=== PATIENT | female | born 1945 | race Caucasian/White ===

== ENCOUNTER 2018-03-16 14:17 | Emergency (ER) | payer OTHER ==
--- NOTE | 2018-03-16 15:49 | ER ---
Nurse's Notes [facility] Name: Virginia Bullard Age: 72 yrs Sex: Female : 1945 Arrival Date: 03/16/2018 Time: 14:22 Bed 17 Private MD: Diagnosis: Fracture of second cervical vertebra Presentation: 03/16 14:26 Presenting complaint: EMS states: EMS reports patient was told to come to nearest ER as aj CT today showed "unstable neck fracture." Type II odontoid FX with undetermined age reported to CT completed today, read by Dr Anderson. Patient denies recent falls or trauma. Transition of care: patient was not received from another setting of care. Onset of symptoms is unknown. Initial Sepsis Screen: Does the patient meet any 2 criteria? No. Patient's initial sepsis screen is negative. Does the patient have a suspected source of infection? No. Patient's initial sepsis screen is negative. Care prior to arrival: None. 14:26 Method Of Arrival: EMS: [facility] 14:26 Acuity: MOHIT 3 aj Triage Assessment: 14:31 General: Appears in no apparent distress. comfortable, Behavior is calm, cooperative, aj appropriate for age. Pain: Denies pain. Neuro: Level of Consciousness is awake, obeys commands, confused, Oriented to person, place, situation. Respiratory: Airway is patent Respiratory effort is even, unlabored, Respiratory pattern is regular, symmetrical. Derm: Skin is intact, is healthy with good turgor, Skin is pink, warm \\T\\ dry. normal. Historical: - Allergies: 14:31 Iodine; aj 14:31 Sulfa (Sulfonamide Antibiotics); aj - Home Meds: 14:31 hydrocodone-acetaminophen 5-500 mg Oral tab 1 tab twice a day [Active]; levetiracetam aj 250 mg oral tab 2 tabs 2 times per day [Active]; tramadol 50 mg Oral tab 1 tab 3 times daily [Active]; oxybutynin chloride 10 mg Oral tr24 1 tab twice a day [Active]; pravastatin 20 mg Oral tab 1 tab once daily [Active]; amlodipine 2.5 mg tab 1 tab once daily [Active]; magnesium oxide 400 mg Oral tab [Active]; fluoxetine 40 mg Oral cap 1 cap once daily [Active]; gabapentin 600 mg Oral tab 1 tab 3 times per day [Active]; omeprazole 20 mg Oral cpDR 1 cap once daily [Active]; amitriptyline 25 mg Oral tab 1 tab once daily [Active]; aspirin 81 mg Oral chew 1 tab once daily [Active]; - PMHx: 14:31 Arthritis; bone disease; aj - PSHx: 14:31 Knee surgery; Rods and pins in back; aj - Immunization history:: Adult Immunizations up to date. - Social history:: Smoking status: Patient/guardian denies using tobacco. Screenin:35 Abuse screen: Denies threats or abuse. Denies injuries from another. Nutritional aj1 screening: No deficits noted. Tuberculosis screening: No symptoms or risk factors identified. 17:11 Fall Risk None identified. aj1 Assessment: 14:35 General: Appears in no apparent distress. comfortable, Behavior is calm, cooperative, aj1 appropriate for age. Pain: Denies pain. Neuro: Level of Consciousness is awake, alert, obeys commands, Oriented to person, place, time, situation, Enrollment Coordinator are equal bilaterally Moves all extremities. Full function Speech is normal, Facial symmetry appears normal, Pupils are PERRLA, Intact. Cardiovascular: Patient's skin is warm and dry. Respiratory: Airway is patent Respiratory effort is even, unlabored, Respiratory pattern is regular, symmetrical. GI: No signs and/or symptoms were reported involving the gastrointestinal system. : No signs and/or symptoms were reported regarding the genitourinary system. EENT: No signs and/or symptoms were reported regarding the EENT system. Derm: No signs and/or symptoms reported regarding the dermatologic system. Musculoskeletal: Range of motion: intact in all extremities, Denies pain in, neck. 15:42 Reassessment: Patient appears in no apparent distress at this time. No changes from aj1 previously documented assessment. Patient and/or family updated on plan of care and expected duration. Pain level reassessed. Patient is alert, oriented x 3, equal unlabored respirations, skin warm/dry/pink. 16:45 Reassessment: Patient appears in no apparent distress at this time. No changes from aj1 previously documented assessment. Patient and/or family updated on plan of care and expected duration. Pain level reassessed. Patient is alert, oriented x 3, equal unlabored respirations, skin warm/dry/pink. 16:50 Reassessment: report given to KAMINI Valentin at [facility]. aj1 Vital Signs: 14:26 BP 147 / 92; Pulse 92; Resp 18; Temp 98.8; Pulse Ox 98% on R/A; Weight 53.52 kg; Height aj 3 ft. 7 in. (109.22 cm); Pain 0/10; 15:42 BP 145 / 78; Pulse 79; Resp 18; Pulse Ox 99% ; aj1 16:45 BP 147 / 82; Pulse 88; Resp 18; Pulse Ox 99% ; aj1 14:26 Body Mass Index 44.87 (53.52 kg, 109.22 cm) aj ED Course: 14:22 Patient arrived in ED. 14:26 Marissa Koehler, RN is Primary Nurse. aj1 14:28 Triage completed. aj 14:31 Arm band placed on left wrist. Patient placed in an exam room, on a stretcher, on pulse aj oximetry. 14:35 Patient has correct armband on for positive identification. Bed in low position. Call aj1 light in reach. Side rails up X 1. 14:35 No provider procedures requiring assistance completed. aj1 14:37 Josh Cunningham MD is Attending Physician. 17:11 Patient did not have IV access during this emergency room visit. aj1 Administered Medications: No medications were administered Outcome: 15:48 ER care complete, transfer ordered by . 17:11 Transferred by ground EMS to [facility]. aj1 17:11 Condition: stable 17:11 Discharge instructions given to patient, family, Instructed on the need for transfer, Demonstrated understanding of instructions. 17:12 Patient left the ED. aj1 Signatures: Marissa Koehler, KAMINI RN aj Alba Bustos RN RN aj Smirch, Shelby, RN RN Josh Cunningham MD MD
--- NOTE | 2018-03-16 15:49 | EDPHYS ---
Physician Documentation [facility] Name: Virginia Bullard Age: 72 yrs Sex: Female : 1945 Arrival Date: 03/16/2018 Time: 14:22 Bed 17 Private MD: ED Physician Josh Cunningham HPI: 03/16 15:44 This 72 yrs old Female presents to ER via EMS with complaints of neck problem gs fracture noted on ct of c spine denies pain. 15:44 Onset: The symptoms/episode began/occurred today. Associated signs and symptoms: gs Pertinent negatives: headache, bladder incontinence, bowel incontinence, numbness, weakness. The pain does not radiate. Severity of symptoms: At their worst the symptoms were very mild, in the emergency department the symptoms are unchanged. Historical: - Allergies: 14:31 Iodine; aj 14:31 Sulfa (Sulfonamide Antibiotics); aj - Home Meds: 14:31 hydrocodone-acetaminophen 5-500 mg Oral tab 1 tab twice a day [Active]; levetiracetam aj 250 mg oral tab 2 tabs 2 times per day [Active]; tramadol 50 mg Oral tab 1 tab 3 times daily [Active]; oxybutynin chloride 10 mg Oral tr24 1 tab twice a day [Active]; pravastatin 20 mg Oral tab 1 tab once daily [Active]; amlodipine 2.5 mg tab 1 tab once daily [Active]; magnesium oxide 400 mg Oral tab [Active]; fluoxetine 40 mg Oral cap 1 cap once daily [Active]; gabapentin 600 mg Oral tab 1 tab 3 times per day [Active]; omeprazole 20 mg Oral cpDR 1 cap once daily [Active]; amitriptyline 25 mg Oral tab 1 tab once daily [Active]; aspirin 81 mg Oral chew 1 tab once daily [Active]; - PMHx: 14:31 Arthritis; bone disease; aj - PSHx: 14:31 Knee surgery; Rods and pins in back; aj - Immunization history:: Adult Immunizations up to date. - Social history:: Smoking status: Patient/guardian denies using tobacco. ROS: 15:44 All other systems are negative. gs Exam: 15:44 Head/Face: Normocephalic, atraumatic. Eyes: Pupils equal round and reactive to light, gs extra-ocular motions intact. Lids and lashes normal. Conjunctiva and sclera are non-icteric and not injected. Cornea within normal limits. Periorbital areas with no swelling, redness, or edema. ENT: Nares patent. No nasal discharge, no septal abnormalities noted. Tympanic membranes are normal and external auditory canals are clear. Oropharynx with no redness, swelling, or masses, exudates, or evidence of obstruction, uvula midline. Mucous membranes moist. Neck: Trachea midline, no thyromegaly or masses palpated, and no cervical lymphadenopathy. Supple, full range of motion without nuchal rigidity, or vertebral point tenderness. No Meningismus. Chest/axilla: Normal chest wall appearance and motion. Nontender with no deformity. No lesions are appreciated. Cardiovascular: Regular rate and rhythm with a normal S1 and S2. No gallops, murmurs, or rubs. Normal PMI, no JVD. No pulse deficits. Respiratory: Lungs have equal breath sounds bilaterally, clear to auscultation and percussion. No rales, rhonchi or wheezes noted. No increased work of breathing, no retractions or nasal flaring. Abdomen/GI: Soft, non-tender, with normal bowel sounds. No distension or tympany. No guarding or rebound. No evidence of tenderness throughout. Back: No spinal tenderness. No costovertebral tenderness. Full range of motion. Skin: Warm, dry with normal turgor. Normal color with no rashes, no lesions, and no evidence of cellulitis. MS/ Extremity: Pulses equal, no cyanosis. Neurovascular intact. Full, normal range of motion. Neuro: Awake and alert, GCS 15, oriented to person, place, time, and situation. Cranial nerves II-XII grossly intact. Motor strength 5/5 in all extremities. Sensory grossly intact. Cerebellar exam normal. Normal gait. 15:44 Constitutional: The patient appears short stature Vital Signs: 14:26 BP 147 / 92; Pulse 92; Resp 18; Temp 98.8; Pulse Ox 98% on R/A; Weight 53.52 kg; Height aj1 3 ft. 7 in. (109.22 cm); Pain 0/10; 15:42 BP 145 / 78; Pulse 79; Resp 18; Pulse Ox 99% ; aj1 16:45 BP 147 / 82; Pulse 88; Resp 18; Pulse Ox 99% ; aj1 14:26 Body Mass Index 44.87 (53.52 kg, 109.22 cm) aj1 MDM: 14:51 Patient medically screened. gs 15:44 Data reviewed: vital signs, nurses notes. ED course: pt need nsgy clearance for c2 fx, gs pt is asymptomatic, no trauma, no pain probably old non union. Administered Medications: No medications were administered Disposition: 03/16/18 15:48 Transfer ordered to [facility]. Diagnosis is Fracture of second cervical vertebra. - Reason for transfer: Higher level of care. - Accepting physician is [facility]. - Condition is Stable. - Problem is new. - Symptoms are unchanged. Signatures: Marissa Koehler RN RN aj1 Alba Bustos RN RN aj Josh Cunningham MD MD
[2018-03-16 17:24] VITALS: TEMP 98.8
[2018-03-16 17:25] VITALS: O2SAT 99
[2018-03-16 17:26] VITALS: BP 147/82
== END 2018-03-16 17:12 | disposition short-term general hospital (02) ==
LOC: ER 14:17
DX: S12.100A Unspecified displaced fracture of second cervical vertebra, initial encounter for closed fracture (principal); Z79.82 Long term (current) use of aspirin; Z88.2 Allergy status to sulfonamides; Z91.048 Other nonmedicinal substance allergy status
CPT/HCPCS: 99285

== ENCOUNTER 2018-04-27 19:45 | Emergency (ER) | payer OTHER ==
[2018-04-27] MEDS ORDERED: LEVETIRACETAM 500 MG/5 ML VIAL IV ONE (20:35)
[2018-04-27] MEDS ORDERED: NA CHLORIDE 0.9% 100 ML IV ONE (20:35)
[2018-04-27 20:40] LABS: Absolute Lymphocytes (CBC) 0.9 K/uL (0.7-4.9); Absolute Monocytes 0.9 K/uL (0.1-1.3); Absolute Neutrophil 6.1 K/uL (1.8-8.0); Basophils % 0.4 % (0-1.3); Eosinophils % 1.1 % (0-4.4); Hematocrit 38.7 % (36.0-45.0); Lymphocytes % 10.6 % (15.3-44.8); MCH 30.6 pg (27.0-35.0); MCV 92.6 fL (80-100); MPV 7.5 fL (7.6-11.3); Monocytes % 11.4 % (3.3-12.3); RBC Red Blood Cell Count 4.18 M/uL (3.86-4.86)
[2018-04-27 20:49] LABS: Potassium 4.9 mEq/L (3.6-5.0)
--- NOTE | 2018-04-27 21:00 | RAD REPORT ---
EXAM DESCRIPTION: CT - Head C Spine Mpr Wo Con - 04/27/2018 8:34 pm CLINICAL HISTORY: Seizure Head and neck injury status post fall. Head and neck pain COMPARISON: February 2018 and October 2017 TECHNIQUE: Computed axial tomography of the head and cervical spine was obtained. Sagittal and coronal reconstruction was performed. All CT scans are performed using dose optimization technique as appropriate and may include automated exposure control or mA/KV adjustment according to patient size. FINDINGS: Postsurgical changes of a suboccipital craniotomy are again demonstrated. A left frontal scalp hematoma is present without underlying fracture. An intracranial bleed is not seen. The ventricles are normal in caliber. An extra-axial fluid collect ion is not noted. Moderate low-density areas within periventricular, deep and subcortical white matte r likely represent ischemic changes secondary to small vessel disease. Mild opacification ethmoid sin us is seen. Mastoids are clear. A fracture involving the base of the odontoid process is again demonstrated. The fractured odontoid p rocess now is displaced 3 millimeters to the left with respect to the base of the odontoid. No change has occurred in the anterior displacement. No acute cervical fracture is seen. Postsurgical changes involving the cervical spine are again demon strated. Spondylosis is unchanged. Evaluation is somewhat limited secondary to artifact from the hardware. IMPRESSION: No acute intracranial abnormality is seen. The fractured odontoid process is displaced 3 millimeters to the left with respect to the base of the dens. No significant change has occurred in the anterior displacement No acute cervical fracture is seen.
--- NOTE | 2018-04-27 21:39 | RAD REPORT ---
EXAM DESCRIPTION: RAD - Knee Right 3 View - 04/27/2018 9:27 pm CLINICAL HISTORY: Right knee pain FINDINGS: The bones are osteoporotic. Deformity involves the distal right femur, proximal right tibi a and proximal right fibula all likely secondary to old fractures. No acute fracture or dislocation is seen.
[2018-04-27 21:45] LABS: Urine Blood 3+ (NEG); Urine Glucose NEGATIVE (NEG); Urine Protein 3+ (NEG); Urine Specific Gravity 1.025 (1.005-1.030)
[2018-04-27] MEDS ORDERED: CEFTRIAXONE/SWI 1gm 1 GM/10 ML SYR ONE (21:46)
[2018-04-27] MEDS ORDERED: NA CHLORIDE 0.9% 1,000 ML ONE (21:46)
--- NOTE | 2018-04-27 21:52 | RAD REPORT ---
EXAM DESCRIPTION: RAD - Hip Right 2 View - 04/27/2018 9:27 pm CLINICAL HISTORY: Right hip pain FINDINGS: The bones are osteoporotic. Marked osteoarthritis involves the right hip consisting joint space narrowing, subchondral sclerosis and osteophytes. The femoral head appears deformed perhaps secondary to avascular necrosis. There may be an old fracture of the femoral neck/trochanters. No dislocation is seen. No obvious acute fracture is noted although a subtle fracture would be difficult to detect given the above findings. If the patient continues to have symptoms to suggest an occult fracture then CT would be recommended
[2018-04-27 21:57] LABS: Urine Bacteria LOADED /HPF (<20); Urine Culture Reflex Order REFLEXED; Urine RBC LOADED /HPF (NONE SEEN)
--- NOTE | 2018-04-27 22:31 | EDPHYS ---
Physician Documentation [facility] Name: Virginia Bullard Age: 72 yrs Sex: Female : 1945 Arrival Date: 04/27/2018 Time: 19:59 Bed 4 Private MD: Jamil Dowling HPI: 04/27 21:59 This 72 yrs old Female presents to ER via EMS with complaints of Probable jr8 Seizure. 21:59 The patient presents after having a single isolated seizure, that lasted 1 minute(s). jr8 Character of seizure(s): Loss of consciousness: the patient experienced loss of consciousness, Motor activity: generalized. Seizure onset: just prior to arrival. Context: the seizure(s) was witnessed, by family, occurred at home, occurred while the patient was standing. Associated injury: The patient did not suffer any apparent associated injury, Right lower extremity: right knee. Current symptoms: Currently, the patient is not experiencing any symptoms, the patient feels back to baseline, no decreased level of consciousness, no confusion, no dysphasia, no headache, no paralysis, no visual changes. The patient has experienced similar episodes in the past, a few times. The patient has not recently seen a physician. History of seizures. Recently taken off of her medication. Had seizure today and fell hitting her head. EMS called at that time . Historical: - Allergies: 20:05 Iodine; lp1 20:05 Sulfa (Sulfonamide Antibiotics); lp1 - Home Meds: 20:05 hydrocodone-acetaminophen 5-325 mg oral tab twice a day [Active]; tramadol 50 mg Oral lp1 tab 1 tab 3 times daily for Neuropathic Pain [Active]; gabapentin 600 mg Oral tab 1 tab four times a day [Active]; levetiracetam 250 mg Oral tab 2 tabs 2 times per day [Active]; oxybutynin chloride 10 mg Oral tr24 1 tab twice a day [Active]; pravastatin 20 mg Oral tab 1 tab nightly [Active]; amlodipine 2.5 mg tab 1 tab once daily [Active]; fluoxetine 40 mg Oral cap 1 cap daily [Active]; omeprazole 20 mg Oral cpDR 1 cap once daily [Active]; amitriptyline 25 mg Oral tab 1 tab once daily [Active]; aspirin 81 mg Oral chew 1 tab once daily [Active]; magnesium oxide 400 mg Oral tab nightly [Active]; - PMHx: 20:05 Arthritis; bone disease; Seizures; Hypertension; Hyperlipidemia; lp1 - PSHx: 20:05 Cervical spinal surgery; lp1 - Immunization history:: Adult Immunizations up to date. - Social history:: Smoking status: Patient/guardian denies using tobacco. - Ebola Screening: : No symptoms or risks identified at this time. ROS: 21:59 Eyes: Negative for injury, pain, redness, and discharge, ENT: Negative for injury, jr8 pain, and discharge, Neck: Negative for injury, pain, and swelling, Cardiovascular: Negative for chest pain, palpitations, and edema, Respiratory: Negative for shortness of breath, cough, wheezing, and pleuritic chest pain, Abdomen/GI: Negative for abdominal pain, nausea, vomiting, diarrhea, and constipation, Back: Negative for injury and pain, MS/Extremity: Negative for injury and deformity. 21:59 Skin: Positive for hematoma, of the face. 21:59 Neuro: Positive for seizure activity. Exam: 21:59 Eyes: Pupils equal round and reactive to light, extra-ocular motions intact. Lids and jr8 lashes normal. Conjunctiva and sclera are non-icteric and not injected. Cornea within normal limits. Periorbital areas with no swelling, redness, or edema. ENT: Nares patent. No nasal discharge, no septal abnormalities noted. Tympanic membranes are normal and external auditory canals are clear. Oropharynx with no redness, swelling, or masses, exudates, or evidence of obstruction, uvula midline. Mucous membranes moist. Neck: Trachea midline, no thyromegaly or masses palpated, and no cervical lymphadenopathy. Supple, full range of motion without nuchal rigidity, or vertebral point tenderness. No Meningismus. Cardiovascular: Regular rate and rhythm with a normal S1 and S2. No gallops, murmurs, or rubs. Normal PMI, no JVD. No pulse deficits. Respiratory: Lungs have equal breath sounds bilaterally, clear to auscultation and percussion. No rales, rhonchi or wheezes noted. No increased work of breathing, no retractions or nasal flaring. Abdomen/GI: Soft, non-tender, with normal bowel sounds. No distension or tympany. No guarding or rebound. No evidence of tenderness throughout. Back: No spinal tenderness. No costovertebral tenderness. Full range of motion. Skin: Warm, dry with normal turgor. Normal color with no rashes, no lesions, and no evidence of cellulitis. Neuro: Awake and alert, GCS 15, oriented to person, place, time, and situation. Cranial nerves II-XII grossly intact. Motor strength 5/5 in all extremities. Sensory grossly intact. Cerebellar exam normal. Normal gait. 21:59 Head/face: Noted is hematoma, that is mild, of the forehead. 21:59 Musculoskeletal/extremity: Extremities: grossly normal except: noted in the right leg: ecchymosis, pain, swelling, tenderness, ROM: intact in all extremities, Circulation is intact in all extremities. Sensation intact. Vital Signs: 20:01 BP 106 / 86; Pulse 101; Resp 18; Temp 98.9(O); Pulse Ox 95% on R/A; Weight 50.8 kg; lp1 Pain 0/10; 20:30 Pulse Ox 88% on R/A; mg2 20:51 BP 120 / 76; Pulse 87; Resp 20; Pulse Ox 97% on 2 lpm NC; mg2 22:24 BP 119 / 70; Pulse 78; Resp 18; Pulse Ox 100% on 2 lpm NC; Pain 0/10; mg2 22:45 BP 104 / 90; Pulse 84; Resp 16; Pulse Ox 99% on 1 lpm NC; lp1 23:15 BP 134 / 74; Pulse 85; Resp 20; Pulse Ox 93% on R/A; lp1 20:30 When patient appears to be sleeping, arousable mg2 Samira Coma Score: 20:05 Eye Response: spontaneous(4). Verbal Response: oriented(5). Motor Response: obeys lp1 commands(6). Total: 15. MDM: 20:03 Patient medically screened. jr8 21:59 Data reviewed: vital signs, nurses notes, lab test result(s), radiologic studies, CT jr8 scan, plain films. Data interpreted: Pulse oximetry: on room air is 97 %. Interpretation: normal. Counseling: I had a detailed discussion with the patient and/or guardian regarding: the historical points, exam findings, and any diagnostic results supporting the discharge/admit diagnosis, lab results, radiology results, the need for outpatient follow up, a neurologist, to return to the emergency department if symptoms worsen or persist or if there are any questions or concerns that arise at home. ED course: Patient without seizure while in ED. UTI present which can exacerbate seizures. Will put on antibiotics and restart on meds. Needs to f/u with neurologist. If worse to come back. 22:29 ED course: Patient uses walker at home. Ambulated patient here with assistance to make jrNegro sure she can bear weight. Patient was able to ambulate. Stated that she has no pain with ambulation and feels as if she would normally feel with walking.. 22:31 ED course: Discussed with patient that she needs to f/u with neurosurgeon again for jr8 chronic odontoid fracture . 04/27 20:22 Order name: CBC with Diff; Complete Time: 20:54 04/27 20:22 Order name: Basic Metabolic Panel; Complete Time: 20:54 04/27 20:21 Order name: XRAY Knee RIGHT 3 view; Complete Time: 21:40 8 04/27 21:39 Order name: Urine Microscopic Only; Complete Time: 22:17 04/27 21:41 Order name: Urine Dipstick--Ancillary (enter results); Complete Time: 21:56 ms 04/27 21:58 Order name: Urine Culture EDMS 04/27 20:21 Order name: XRAY Hip RIGHT 2 view; Complete Time: 21:56 04/27 20:21 Order name: CT Head C Spine; Complete Time: 21:13 04/27 20:22 Order name: Urine Dipstick-Ancillary (obtain specimen); Complete Time: 21:36 04/27 20:24 Order name: IV; Complete Time: 20:24 Administered Medications: 20:42 Drug: Keppra 1000 mg Route: IV; Rate: calculated rate; Site: left antecubital; mg2 21:36 Follow up: Response: Other; IV Status: Completed infusion; no seizure noted mg2 21:48 Drug: NS 0.9% 1000 ml Route: IV; Rate: 1000 ml; Site: left antecubital; mg2 23:24 Follow up: IV Status: Completed infusion; IV Intake: 900ml lp1 21:48 Drug: Rocephin 1 grams Route: IV; Rate: calculated rate; Site: left antecubital; mg2 23:25 Follow up: IV Status: Completed infusion lp1 Point of Care Testing: Blood Glucose: 20:00 Blood Glucose: 102 mg/dL; lp1 Ranges: Critical Glucose Levels:Adult <50 mg/dl or >400 mg/dl <40 mg/dl or >180 mg/dl Disposition: 04/28 06:37 Co-signature as Attending Physician, Jamil Schultz MD I agree with the assessment and nickolas plan of care. Disposition: 04/27/18 22:30 Discharged to Home. Impression: Epilepsy and recurrent seizures, Hematoma head, Contusion of right knee, Urinary tract infection, site not specified. - Condition is Stable. - Discharge Instructions: Seizure, Adult, Knee Pain. - Prescriptions for Keppra 500 mg Oral Tablet - take 1 tablet by ORAL route every 12 hours; 20 tablet. Macrobid 100 mg Oral Capsule - take 1 capsule by ORAL route every 12 hours for 7 days; 14 capsule. - Medication Reconciliation Form, Thank You Letter, Antibiotic Education, Prescription Opioid Use form. - Follow up: Private Physician; When: 2 - 3 days; Reason: Recheck today's complaints, Continuance of care, Re-evaluation by your physician. - Problem is new. - Symptoms have improved. Signatures: Dispatcher [employer] EDJamil Samaniego MD MD cha Pena, Laura, RN RN lp1 Bradly Aguayo PA PA jr8 Dov Allen RN RN mg2 Corrections: (The following items were deleted from the chart) 04/27 22:31 22:30 04/27/2018 22:30 Discharged to Home. Impression: Epilepsy and recurrent seizures; jr8 Hematoma head; Contusion of right knee. Condition is Stable. Forms are Medication Reconciliation Form, Thank You Letter, Antibiotic Education, Prescription Opioid Use. Follow up: Private Physician; When: 2 - 3 days; Reason: Recheck today's complaints, Continuance of care, Re-evaluation by your physician. Problem is new. Symptoms have improved. jr8 23:25 22:31 04/27/2018 22:30 Discharged to Home. Impression: Epilepsy and recurrent seizures; lp1 Hematoma head; Contusion of right knee; Urinary tract infection, site not specified. Condition is Stable. Discharge Instructions: Seizure, Adult, Knee Pain. Prescriptions for Keppra 500 mg Oral Tablet - take 1 tablet by ORAL route every 12 hours; 20 tablet, Macrobid 100 mg Oral Capsule - take 1 capsule by ORAL route every 12 hours for 7 days; 14 capsule. and Forms are Medication Reconciliation Form, Thank You Letter, Antibiotic Education, Prescription Opioid Use. Follow up: Private Physician; When: 2 - 3 days; Reason: Recheck today's complaints, Continuance of care, Re-evaluation by your physician. Problem is new. Symptoms have improved. jr8
--- NOTE | 2018-04-27 22:31 | ER ---
Nurse's Notes [facility] Name: Virginia Bullard Age: 72 yrs Sex: Female : 1945 Arrival Date: 04/27/2018 Time: 19:59 Bed 4 Private MD: Diagnosis: Epilepsy and recurrent seizures;Hematoma head;Contusion of right knee;Urinary tract infection, site not specified Presentation: 04/27 19:59 Presenting complaint: EMS states: Patient taken off of her seizure medication, Nolan, shabana1 recently by ; had unwitnessed fall after seizure about an hour ago, family heard loud noise and found patient on floor; Complaint of pain to R knee, EMS unable to apply C-collar due to anatomy of patient. Transition of care: patient was not received from another setting of care. Onset of symptoms was April 27, 2018 at 19:00. Risk Assessment: Do you want to hurt yourself or someone else? Patient reports no desire to harm self or others. Initial Sepsis Screen: Does the patient meet any 2 criteria? No. Patient's initial sepsis screen is negative. Does the patient have a suspected source of infection? No. Patient's initial sepsis screen is negative. Care prior to arrival: IV initiated. 20 GA, in the left antecubital area, Glucose check: 113. 19:59 Method Of Arrival: EMS: [facility] lp1 19:59 Acuity: MOHIT 2 lp1 Historical: - Allergies: 20:05 Iodine; lp1 20:05 Sulfa (Sulfonamide Antibiotics); lp1 - Home Meds: 20:05 hydrocodone-acetaminophen 5-325 mg oral tab twice a day [Active]; tramadol 50 mg Oral lp1 tab 1 tab 3 times daily for Neuropathic Pain [Active]; gabapentin 600 mg Oral tab 1 tab four times a day [Active]; levetiracetam 250 mg Oral tab 2 tabs 2 times per day [Active]; oxybutynin chloride 10 mg Oral tr24 1 tab twice a day [Active]; pravastatin 20 mg Oral tab 1 tab nightly [Active]; amlodipine 2.5 mg tab 1 tab once daily [Active]; fluoxetine 40 mg Oral cap 1 cap daily [Active]; omeprazole 20 mg Oral cpDR 1 cap once daily [Active]; amitriptyline 25 mg Oral tab 1 tab once daily [Active]; aspirin 81 mg Oral chew 1 tab once daily [Active]; magnesium oxide 400 mg Oral tab nightly [Active]; - PMHx: 20:05 Arthritis; bone disease; Seizures; Hypertension; Hyperlipidemia; lp1 - PSHx: 20:05 Cervical spinal surgery; lp1 - Immunization history:: Adult Immunizations up to date. - Social history:: Smoking status: Patient/guardian denies using tobacco. - Ebola Screening: : No symptoms or risks identified at this time. Screenin:04 Abuse screen: Denies threats or abuse. Denies injuries from another. Nutritional mg2 screening: No deficits noted. Tuberculosis screening: No symptoms or risk factors identified. Fall Risk Secondary diagnosis (15 points) seizures, IV access (20 points). Assessment: 20:05 General: Appears in no apparent distress. comfortable, Behavior is calm, cooperative. mg2 Neuro: Level of Consciousness is awake, alert, obeys commands, Oriented to person, place, time. 20:06 Neuro:. Cardiovascular: Capillary refill < 3 seconds Patient's skin is warm and dry. mg2 Respiratory: Airway is patent Respiratory effort is even, unlabored, Respiratory pattern is regular, symmetrical. GI: No signs and/or symptoms were reported involving the gastrointestinal system. : No signs and/or symptoms were reported regarding the genitourinary system. EENT: No signs and/or symptoms were reported regarding the EENT system. Derm: Skin is intact, Skin is pink, warm \T\ dry. normal. 20:58 Pain: Complains of pain in left eyebrow area, right knee Pain does not radiate. Pain mg2 currently is 5 out of 10 on a pain scale. Quality of pain is described as aching, Pain began suddenly, 2 hours ago. Aggravated by touch. 20:59 Musculoskeletal: Circulation, motion, and sensation intact. Swelling present in left mg2 eyebrow mily. Injury Description: Bruise sustained to left eyebrow area. 22:34 Reassessment: sister in law bernardo was called and said she is coming to pick her up. mg2 patient is for discharge. 23:22 Reassessment: Patient resting, eyes closed, respirations unlabored; family at bedside lp1 to take patient home; brought patient's personal wheelchair. Vital Signs: 20:01 BP 106 / 86; Pulse 101; Resp 18; Temp 98.9(O); Pulse Ox 95% on R/A; Weight 50.8 kg; lp1 Pain 0/10; 20:30 Pulse Ox 88% on R/A; mg2 20:51 BP 120 / 76; Pulse 87; Resp 20; Pulse Ox 97% on 2 lpm NC; mg2 22:24 BP 119 / 70; Pulse 78; Resp 18; Pulse Ox 100% on 2 lpm NC; Pain 0/10; mg2 22:45 BP 104 / 90; Pulse 84; Resp 16; Pulse Ox 99% on 1 lpm NC; lp1 23:15 BP 134 / 74; Pulse 85; Resp 20; Pulse Ox 93% on R/A; lp1 20:30 When patient appears to be sleeping, arousable mg2 Samira Coma Score: 20:05 Eye Response: spontaneous(4). Verbal Response: oriented(5). Motor Response: obeys lp1 commands(6). Total: 15. ED Course: 19:59 Patient arrived in ED. lp1 20:01 Triage completed. lp1 20:01 Arm band placed on left wrist. lp1 20:03 Bradly Aguayo PA is PHCP. jr8 20:03 Jamil Schultz MD is Attending Physician. jr8 20:03 Dov Allen RN is Primary Nurse. mg2 20:04 Maintain EMS IV. Dressing intact. Good blood return noted. Site clean \T\ dry. mg2 20:05 Patient has correct armband on for positive identification. Bed in low position. Call lp1 light in reach. Side rails up X2. monitor and storage bin tender on. Pulse ox on. NIBP on. 20:[address] via stretcher. kw1 20:30 Seizure precautions initiated. lp1 20:35 CT Head C Spine In Process Unspecified. EDMS 21:27 XRAY Knee RIGHT 3 view In Process Unspecified. EDMS 21:27 XRAY Hip RIGHT 2 view In Process Unspecified. EDMS 21:38 Urine collected: straight cath specimen, tea colored. mg2 23:24 No provider procedures requiring assistance completed. IV discontinued, to left AC. lp1 Administered Medications: 20:42 Drug: Keppra 1000 mg Route: IV; Rate: calculated rate; Site: left antecubital; mg2 21:36 Follow up: Response: Other; IV Status: Completed infusion; no seizure noted mg2 21:48 Drug: NS 0.9% 1000 ml Route: IV; Rate: 1000 ml; Site: left antecubital; mg2 23:24 Follow up: IV Status: Completed infusion; IV Intake: 900ml lp1 21:48 Drug: Rocephin 1 grams Route: IV; Rate: calculated rate; Site: left antecubital; mg2 23:25 Follow up: IV Status: Completed infusion lp1 Point of Care Testing: Blood Glucose: 20:00 Blood Glucose: 102 mg/dL; lp1 Ranges: Intake: 23:24 IV: 900ml; Total: 900ml. lp1 Outcome: 22:30 Discharge ordered by . jrNegro 23:24 Discharged to home via wheelchair, with family. lp1 23:24 Condition: good 23:24 Discharge instructions given to patient, family, Instructed on discharge instructions, follow up and referral plans. medication usage, Demonstrated understanding of instructions, follow-up care, medications, Prescriptions given X 2. 23:25 Patient left the ED. lp1 Addendum: 04/30/2018 07:41 Addendum: Culture Results: Positive urine culture. No further action required. Bacteria i w sensitive to prescribed antibiotic. Signatures: Dispatcher [employer] EDMilvia Harp RN RN iw Pauline Farmer RN RN lp1 Bradly Aguayo PA PA jr8 Aylin Meraz 1 Dov Allen RN RN mg2 Corrections: (The following items were deleted from the chart) 04/27 21:00 20:06 Musculoskeletal: No signs and/or symptoms reported regarding the musculoskeletal mg2 system. mg2
[2018-04-27 23:50] VITALS: TEMP 98.9
[2018-04-27 23:56] VITALS: BP 134/74; O2SAT 93
--- NOTE | 2018-04-29 07:59 | EKG ---
Test Date: 2018-04-27 Test Time: 20:14:02 Table And Desk Finisher: ENRIQUE MEASUREMENT RESULTS: Intervals: Rate: 90 OR: 174 QRSD: 90 QT: 378 QTc: 462 [place]: P: 29 OR: 174 QRS: 40 T: 50 INTERPRETIVE STATEMENTS: Normal sinus rhythm Normal ECG Compared to ECG 10/29/2017 12:14:28 No significant changes Electronically Signed On 04-29-18 07:55:23 CDT by Joshua Wong
== END 2018-04-27 23:25 | disposition home or self-care (01) ==
LOC: ER 19:45
DX: S00.93XA Contusion of unspecified part of head, initial encounter (principal); S80.01XA Contusion of right knee, initial encounter; N39.0 Urinary tract infection, site not specified; I10 Essential (primary) hypertension; E78.5 Hyperlipidemia, unspecified; W18.30XA Fall on same level, unspecified, initial encounter; Y93.89 Activity, other specified; Y92.9 Unspecified place or not applicable; Z79.82 Long term (current) use of aspirin; Z88.2 Allergy status to sulfonamides; Z88.8 Allergy status to other drugs, medicaments and biological substances
CPT/HCPCS: 36415; 70450; 72125; 73502; 73562; 80048; 82962; 85025; 87077; 87086; 87088; 87186; 93005; 96365; 96366; 96367; 99285; J0696; J1953; J7030; 81003; 81015; 96361

== ENCOUNTER 2019-09-19 07:28 | Emergency (ER) | payer OTHER ==
[2019-09-19 08:22] LABS: Absolute Lymphocytes (CBC) 1.2 K/uL (0.7-4.9); Basophils % 0.5 % (0-1.3); Hematocrit 23.7 % (36.0-45.0); Lymphocytes % 9.6 % (15.3-44.8); MPV 6.3 fL (7.6-11.3); RBC Red Blood Cell Count 2.68 M/uL (3.86-4.86)
--- NOTE | 2019-09-19 08:30 | RAD REPORT ---
EXAM DESCRIPTION: CT - Abdomen Pelvis Wo Contrast - 09/19/2019 8:21 am CLINICAL HISTORY: Abdominal pain. ABD PAIN COMPARISON: No comparisons TECHNIQUE: CT imaging of the abdomen and pelvis was performed without contrast. Solid organ, bowel a nd vascular assessment is limited due to lack of IV and oral contrast. All CT scans are performed using dose optimization technique as appropriate and may include automated exposure control or mA/KV adjustment according to patient size. FINDINGS: The lower lung naik are clear. The liver, spleen, pancreas, adrenal glands and kidneys are within normal limits for a limited non-co ntrast examination. No bowel obstruction, free air, free fluid or abscess. Moderate retained stool in the colon. The appe ndix is not identified as a discrete structure, however, no secondary findings of appendicitis are id entified. Trauma degenerative change in the lumbar spine in both hips. IMPRESSION: Moderate fecal retention. A limited non-contrast examination was performed as detailed.
[2019-09-19] MEDS ORDERED: FLEET ENEMA ADULT PR ONE (08:41)
[2019-09-19 09:24] LABS: Potassium 3.7 mmol/L (3.5-5.1)
--- NOTE | 2019-09-19 09:49 | ER ---
Nurse's Notes [facility] Name: Virginia Bullard Age: 73 yrs Sex: Female : 1945 Arrival Date: 09/19/2019 Time: 07:32 Bed 18 Private MD: Diagnosis: Constipation;Gastrointestinal hemorrhage, unspecified Presentation: 09/19 07:45 Presenting complaint: Patient states: constipation x 1 week. Patient believes it's ss because of all the Morphine she takes for chronic pain. Transition of care: patient was not received from another setting of care. Onset of symptoms was September 12, 2019. Risk Assessment: Do you want to hurt yourself or someone else? Patient reports no desire to harm self or others. Initial Sepsis Screen: Does the patient meet any 2 criteria? No. Patient's initial sepsis screen is negative. Does the patient have a suspected source of infection? No. Patient's initial sepsis screen is negative. Care prior to arrival: None. 07:45 Method Of Arrival: Wheelchair ss 07:45 Acuity: MOHIT 3 ss Historical: - Allergies: 07:43 Iodine; sv 07:43 Sulfa (Sulfonamide Antibiotics); sv - Home Meds: 09:21 amlodipine 10 mg oral tab 1 tab once daily [Active]; fluoxetine 40 mg Oral cap 1 cap 2 ss times per day [Active]; oxybutynin chloride 5 mg oral tab 1 tab [Active]; meloxicam 15 mg oral tab 1 tab once daily [Active]; Gabapentin (out) [Active]; [place] (out) [Active]; Morphine Oral TID [Active]; 09:25 diclofenac oral oral [Active]; sv - PMHx: 07:43 Arthritis; bone disease; Hyperlipidemia; Hypertension; Seizures; sv - PSHx: 07:43 Cervical spinal surgery; sv - Immunization history:: Flu vaccine is not up to date. - Social history:: Smoking status: Patient/guardian denies using tobacco. - Ebola Screening: : Patient denies exposure to infectious person Patient denies travel to an Ebola-affected area in the 21 days before illness onset. Screenin:44 Abuse screen: Denies threats or abuse. Denies injuries from another. Nutritional sv screening: No deficits noted. Tuberculosis screening: No symptoms or risk factors identified. Fall Risk None identified. Assessment: 07:45 General: Appears in no apparent distress. uncomfortable, Behavior is calm, cooperative, sv appropriate for age. Neuro: Level of Consciousness is awake, alert, obeys commands, Oriented to person, place, time, situation. Respiratory: Respiratory effort is even, unlabored, Respiratory pattern is regular, symmetrical. GI: Reports constipation. Derm: Skin is normal. 07:46 Reassessment: Patient is unsure dose of Morphine she takes three times daily when ss asked. Patient states, "it's in the bag." No Morphine prescription is observed in the bag, patient states, "your kidding me?", then verbalizes understanding. 08:26 Reassessment: Patient appears in no apparent distress at this time. No changes from sv previously documented assessment. Patient and/or family updated on plan of care and expected duration. Pain level reassessed. Patient is alert, oriented x 3, equal unlabored respirations, skin warm/dry/pink. 09:06 Reassessment: Patient appears in no apparent distress at this time. Patient and/or sv family updated on plan of care and expected duration. Pain level reassessed. Patient is alert, oriented x 3, equal unlabored respirations, skin warm/dry/pink. Pt had a small amount of stool, noted to be black in appearance. Informed Bradly FARMER. 10:00 Reassessment: Patient appears in no apparent distress at this time. No changes from sv previously documented assessment. Patient and/or family updated on plan of care and expected duration. Pain level reassessed. Patient is alert, oriented x 3, equal unlabored respirations, skin warm/dry/pink. 10:40 Reassessment: Patient appears in no apparent distress at this time. No changes from sv previously documented assessment. Patient and/or family updated on plan of care and expected duration. Pain level reassessed. Patient is alert, oriented x 3, equal unlabored respirations, skin warm/dry/pink. Vital Signs: 07:41 BP 145 / 86; Pulse 92; Resp 18; Temp 98.5(TE); Pulse Ox 100% ; sv 07:46 Height 3 ft. 7 in. (109.22 cm); ss 08:25 BP 133 / 80; Pulse 93; Resp 16; Pulse Ox 100% ; sv 09:57 BP 143 / 99; Pulse 95; Resp 16; Pulse Ox 100% ; sv 10:40 Pain 6/10; sv 10:46 BP 121 / 75; Pulse 81; Resp 16; Pulse Ox 100% ; sv ED Course: 07:32 Patient arrived in ED. mr 07:36 Orly Murillo, KAMINI is Primary Nurse. sv 07:38 Bradly Aguayo PA is PHCP. jr8 07:38 Jamil Schultz MD is Attending Physician. jr8 07:42 Arm band placed on Patient placed in an exam room, on a stretcher. sv 07:44 Patient has correct armband on for positive identification. Bed in low position. Call sv light in reach. Side rails up X2. Adult w/ patient. Pulse ox on. NIBP on. 07:46 Triage completed. ss 07:46 Awaiting ED provider evaluation. sv 07:54 Nurse Practitioner and/or Physician Plumbing Hardware Assembler to see patient. sv 08:05 Inserted saline lock: 20 gauge in right antecubital area, using aseptic technique. sv Blood collected. Flushed right antecubital with 5 ml normal saline. 08:12 Awaiting lab results, Awaiting CT Scan. sv 08:21 CT Abd/Pelvis - Without Contrast In Process Unspecified. EDMS 08:[address] Patient moved back from CT. sv 08:26 Awaiting radiology results. sv 08:30 Lab(s) recollected, by me, sent to lab. sv 10:02 transfer approval from receiving facility. sv 10:45 No provider procedures requiring assistance completed. Patient transferred, IV remains sv in place. intact. 10:58 transfer transportation to receiving facility. sv Administered Medications: 08:48 Drug: Fleet Enema 133 ml Route: [place]; sv 09:07 Follow up: Response: No adverse reaction sv 09:59 Drug: morphine 4 mg {Note: RASS1.} Route: IVP; Site: right antecubital; sv 10:40 Follow up: Pain 6/10 Adult; Response: No adverse reaction; RASS: Alert and Calm (0) sv Point of Care Testing: Guaiac: 09:05 Stool Guaiac: Positive; Stool Hemoccult Control: Pass; sv Outcome: 09:48 ER care complete, transfer ordered by . jr8 10:44 Transferred by ground EMS to [facility], Transfer form completed. sv X-rays sent w/ patient. Note: Report called to Maya SUÁREZ 10:44 Condition: stable 10:44 Instructed on the need for transfer. 11:41 Patient left the ED. ss Signatures: Dispatcher [employer] Orly Donovan RN RN Wilfredo Patsy Olivia Barfield RN RN ss Roszak, Josh, PA PA jr8
--- NOTE | 2019-09-19 09:49 | EDPHYS ---
Physician Documentation [facility] Name: Virginia Bullard Age: 73 yrs Sex: Female : 1945 Arrival Date: 09/19/2019 Time: 07:32 Bed 18 Private MD: ROSENDA Physician Jamil Schultz HPI: 09/19 08:00 This 73 yrs old Female presents to ER via Wheelchair with complaints of jr8 Constipation. 08:00 The patient presents with constipation. Onset: The symptoms/episode began/occurred last jr8 week. Associated signs and symptoms: Pertinent negatives: nausea and vomiting. The symptoms are described as crampy. Severity of pain: At its worst the pain was moderate. The patient has experienced similar episodes in the past. Pt reports decrease in number of BM in the last week, is taking morphine daily at home for pain. Reports some abd pain in the RLQ as well. Historical: - Allergies: 07:43 Iodine; sv 07:43 Sulfa (Sulfonamide Antibiotics); sv - Home Meds: 09:21 amlodipine 10 mg oral tab 1 tab once daily [Active]; fluoxetine 40 mg Oral cap 1 cap 2 ss times per day [Active]; oxybutynin chloride 5 mg oral tab 1 tab [Active]; meloxicam 15 mg oral tab 1 tab once daily [Active]; Gabapentin (out) [Active]; [place] (out) [Active]; Morphine Oral TID [Active]; 09:25 diclofenac oral oral [Active]; sv - PMHx: 07:43 Arthritis; bone disease; Hyperlipidemia; Hypertension; Seizures; sv - PSHx: 07:43 Cervical spinal surgery; sv - Immunization history:: Flu vaccine is not up to date. - Social history:: Smoking status: Patient/guardian denies using tobacco. - Ebola Screening: : Patient denies exposure to infectious person Patient denies travel to an Ebola-affected area in the 21 days before illness onset. ROS: 08:00 Constitutional: Negative for fever, chills, and weight loss, Neck: Negative for injury, jr8 pain, and swelling, Cardiovascular: Negative for chest pain, palpitations, and edema, Respiratory: Negative for shortness of breath, cough, wheezing, and pleuritic chest pain, Back: Negative for injury and pain, MS/Extremity: Negative for injury and deformity, Skin: Negative for injury, rash, and discoloration, Neuro: Negative for headache, weakness, numbness, tingling, and seizure. 08:00 Abdomen/GI: Positive for constipation, Negative for abdominal pain, nausea and vomiting, black/tarry stool, rectal pain. Exam: 08:02 Constitutional: This is a well developed, well nourished patient who is awake, alert, jr8 and in no acute distress. Head/Face: Normocephalic, atraumatic. Eyes: Pupils equal round and reactive to light, extra-ocular motions intact. Lids and lashes normal. Conjunctiva and sclera are non-icteric and not injected. Cornea within normal limits. Periorbital areas with no swelling, redness, or edema. ENT: Nares patent. No nasal discharge, no septal abnormalities noted. Tympanic membranes are normal and external auditory canals are clear. Oropharynx with no redness, swelling, or masses, exudates, or evidence of obstruction, uvula midline. Mucous membranes moist. Neck: Trachea midline, no thyromegaly or masses palpated, and no cervical lymphadenopathy. Supple, full range of motion without nuchal rigidity, or vertebral point tenderness. No Meningismus. Chest/axilla: Normal chest wall appearance and motion. Nontender with no deformity. No lesions are appreciated. Cardiovascular: Regular rate and rhythm with a normal S1 and S2. No gallops, murmurs, or rubs. Normal PMI, no JVD. No pulse deficits. Respiratory: Lungs have equal breath sounds bilaterally, clear to auscultation and percussion. No rales, rhonchi or wheezes noted. No increased work of breathing, no retractions or nasal flaring. Back: No spinal tenderness. No costovertebral tenderness. Full range of motion. Skin: Warm, dry with normal turgor. Normal color with no rashes, no lesions, and no evidence of cellulitis. MS/ Extremity: Pulses equal, no cyanosis. Neurovascular intact. Full, normal range of motion. 08:02 Abdomen/GI: Inspection: obese Bowel sounds: normal, in all quadrants, Palpation: abdomen is soft and non-tender, in all quadrants, Indicators: McBurney's point is tender, Chicas's sign is negative, Rovsing's sign is negative, Obturator sign is negative, Psoas sign is negative. Vital Signs: 07:41 BP 145 / 86; Pulse 92; Resp 18; Temp 98.5(TE); Pulse Ox 100% ; sv 07:46 Height 3 ft. 7 in. (109.22 cm); ss 08:25 BP 133 / 80; Pulse 93; Resp 16; Pulse Ox 100% ; sv 09:57 BP 143 / 99; Pulse 95; Resp 16; Pulse Ox 100% ; sv 10:40 Pain 6/10; sv 10:46 BP 121 / 75; Pulse 81; Resp 16; Pulse Ox 100% ; sv MDM: 07:38 Patient medically screened. jr8 09:46 Data reviewed: vital signs, nurses notes, lab test result(s), radiologic studies, CT jr8 scan. Data interpreted: Pulse oximetry: on room air is 100 %. Interpretation: normal. Counseling: I had a detailed discussion with the patient and/or guardian regarding: the historical points, exam findings, and any diagnostic results supporting the discharge/admit diagnosis, lab results, radiology results, the need to transfer to another facility, [facility] does not immediately have the required specialist. ED course: [facility] consulted and accepted patient as we do not have GI available at this time . 09/19 07:59 Order name: CBC with Diff; Complete Time: 08:35 8 09/19 09:37 Interpretation: Abnormal: PLT 666. jr8 09/19 07:59 Order name: BMP; Complete Time: 09:36 jr8 09/19 07:59 Order name: CT Abd/Pelvis - Without Contrast; Complete Time: 08:35 jr8 09/19 09:05 Order name: Occult Blood--Ancillary sv 09/19 07:59 Order name: SL; Complete Time: 08:10 jr8 09/19 08:27 Order name: Labs - recollect needed; Complete Time: 08:35 bd Administered Medications: 08:48 Drug: Fleet Enema 133 ml Route: [place]; sv 09:07 Follow up: Response: No adverse reaction sv 09:59 Drug: morphine 4 mg {Note: RASS1.} Route: IVP; Site: right antecubital; sv 10:40 Follow up: Pain 6/10 Adult; Response: No adverse reaction; RASS: Alert and Calm (0) sv Point of Care Testing: Guaiac: 09:05 Stool Guaiac: Positive; Stool Hemoccult Control: Pass; sv Disposition: 09/20 07:22 Co-signature as Attending Physician, Jamil Schultz MD I agree with the assessment and nickolas plan of care. Disposition: 09/19/19 09:48 Transfer ordered to [facility]. Diagnosis are Constipation, Gastrointestinal hemorrhage, unspecified. - Reason for transfer: Higher level of care. - Accepting physician is [facility]. - Condition is Stable. - Problem is new. - Symptoms are unchanged. Signatures: Dispatcher [employer] EDMS Breanna Jacob Stephanie, RN Jamil Mckeon MD MD cha Smirch, Shelby, RN RN ss Roszak, Josh, PA PA jr8 Corrections: (The following items were deleted from the chart) 09/19 11:41 09:48 09/19/2019 09:48 Transfer ordered to [facility]. Diagnosis is ss Constipation; Gastrointestinal hemorrhage, unspecified. Reason for transfer: Higher level of care. Accepting physician is [facility]. Condition is Stable. Problem is new. Symptoms are unchanged. jr8
[2019-09-19] MEDS ORDERED: MORPHINE 4 MG/ML SYR ONE (09:50)
[2019-09-19 11:53] VITALS: TEMP 98.5; O2SAT 100
[2019-09-19 11:57] VITALS: BP 121/75
== END 2019-09-19 11:41 | disposition short-term general hospital (02) ==
LOC: ER 07:28
DX: K92.2 Gastrointestinal hemorrhage, unspecified (principal); K59.00 Constipation, unspecified; Z88.2 Allergy status to sulfonamides; Z91.09 Other allergy status, other than to drugs and biological substances
CPT/HCPCS: 36415; 74176; 80048; 82272; 85025; 96374; 99285

== ENCOUNTER 2019-09-21 18:14 | Observation (INO) | payer OTHER ==
[2019-09-21] MEDS ORDERED: NA CHLORIDE 0.9% 1,000 ML ONE (19:56)
[2019-09-21 20:05] LABS: Absolute Lymphocytes (CBC) 1.8 K/uL (0.7-4.9); Basophils % 0.3 % (0-1.3); Hematocrit 37.4 % (36.0-45.0); Lymphocytes % 10.7 % (15.3-44.8); MPV 6.2 fL (7.6-11.3); RBC Red Blood Cell Count 4.28 M/uL (3.86-4.86)
[2019-09-21 20:07] LABS: Protime INR 1.19
[2019-09-21 20:32] LABS: ALT/SGPT 22 U/L (12-78); AST/SGOT 28 U/L (15-37); Albumin 3.3 g/dL (3.4-5.0); Alkaline Phosphatase 117 U/L (45-117); BUN Blood Urea Nitrogen 16 mg/dL (7-18); Bicarbonate 22 mmol/L (21-32); Bilirubin Direct 0.2 mg/dL (0-0.2); Bilirubin Total 0.6 mg/dL (0.2-1.0); Glucose Level 97 mg/dL (74-106); Lipase 188 U/L (73-393); Magnesium 1.7 mg/dL (1.8-2.4); NT PRO-BNP 1118 pg/mL (<125); Potassium 3.1 mmol/L (3.5-5.1); Protein, Total 7.7 g/dL (6.4-8.2); Sodium Level 132 mmol/L (136-145); Troponin (Emerg Dept Use Only) < 0.02 ng/mL (0.0-0.045)
--- NOTE | 2019-09-21 20:45 | RAD REPORT ---
EXAM DESCRIPTION: RAD - Chest Single View - 09/21/2019 8:39 pm CLINICAL HISTORY: ABDOMINAL DISTENTION Chest pain. COMPARISON: No comparisons FINDINGS: Portable technique limits examination quality. The lungs are underinflated but grossly clear. Probable small hiatal hernia. The heart is normal in s ize. Chronic deformity seen in both shoulders.Cervical hardware is noted.
--- NOTE | 2019-09-21 20:59 | ER ---
Nurse's Notes [facility] Name: Virginia Bullard Age: 73 yrs Sex: Female : 1945 Arrival Date: 09/21/2019 Time: 18:23 Bed 5 Private MD: Diagnosis: Abdominal tenderness;Elevated white blood cell count;Hypomagnesemia;Fever, unspecified;Weakness;Hypokalemia Presentation: 09/21 18:30 Presenting complaint: EMS states: Discharged from [facility] yesterday with bleeding ulcer, hb today reports generalized weakness and upper abdominal pain 5/10. Transition of care: patient was not received from another setting of care. Onset of symptoms was September 21, 2019. Risk Assessment: Do you want to hurt yourself or someone else? Patient reports no desire to harm self or others. Care prior to arrival: IV initiated. 20 GA, in the left forearm. 18:30 Method Of Arrival: EMS: [facility] hb 18:30 Acuity: MOHIT 3 hb Triage Assessment: 18:35 General: Appears in no apparent distress. Behavior is calm, cooperative. Pain: Pain hb currently is 5 out of 10 on a pain scale. Neuro: Level of Consciousness is awake, alert, obeys commands, Oriented to person, place, time, situation. Cardiovascular: Capillary refill < 3 seconds Patient's skin is warm and dry. Respiratory: Airway is patent Respiratory effort is even, unlabored, Respiratory pattern is regular, symmetrical. GI: Reports upper abdominal pain. Historical: - Allergies: 18:50 Iodine; hb 18:50 Sulfa (Sulfonamide Antibiotics); hb - PMHx: 19:00 Arthritis; bone disease; Hyperlipidemia; Hypertension; Seizures; jb4 - PSHx: 19:00 Cervical spinal surgery; jb4 - Immunization history:: Adult Immunizations up to date. - Social history:: Smoking status: Patient/guardian denies using tobacco. - Ebola Screening: : No symptoms or risks identified at this time. - Family history:: not pertinent. Screenin:49 Abuse screen: Denies threats or abuse. Denies injuries from another. Nutritional hb screening: No deficits noted. Tuberculosis screening: No symptoms or risk factors identified. Fall Risk Total Young Fall Scale indicates Low Risk Score (25-44 pts). Fall prevention measures have been instituted. Side Rails Up X 2 Frequent Obs/Assesments occuring As available Patient and Family Educated on Fall Prevention Program and strategies. Assessment: 19:25 General: Appears in no apparent distress. uncomfortable, Behavior is calm, cooperative, jb4 appropriate for age. Pain: Complains of pain in abdomen Pain does not radiate. Pain currently is 6 out of 10 on a pain scale. Quality of pain is described as it just hurts. Neuro: Level of Consciousness is awake, alert, obeys commands, Oriented to person, place, time, situation. Cardiovascular: Patient's skin is warm and dry. Respiratory: Airway is patent Respiratory effort is even, unlabored, Respiratory pattern is regular, symmetrical. GI: Abdomen is flat, non-distended, Bowel sounds present X 4 quads. Abd is soft X 4 quads Abdomen is tender to palpation X 4 quads. : No deficits noted. No signs and/or symptoms were reported regarding the genitourinary system. EENT: No deficits noted. No signs and/or symptoms were reported regarding the EENT system. Derm: Skin is intact, Skin is dry, Skin is pale, Skin temperature is warm. Musculoskeletal: Circulation, motion, and sensation intact. Range of motion: intact in all extremities. 20:29 Reassessment: Patient appears in no apparent distress at this time. Patient and/or jb4 family updated on plan of care and expected duration. Pain level reassessed. Patient is alert, oriented x 3, equal unlabored respirations, skin warm/dry/pink. 21:45 Reassessment: Patient appears in no apparent distress at this time. Patient and/or jb4 family updated on plan of care and expected duration. Pain level reassessed. Patient is alert, oriented x 3, equal unlabored respirations, skin warm/dry/pink. PT to CT Patient states feeling better. 21:45 Reassessment: Patient appears in no apparent distress at this time. Patient and/or jb4 family updated on plan of care and expected duration. Pain level reassessed. Patient is alert, oriented x 3, equal unlabored respirations, skin warm/dry/pink. 23:00 Reassessment: Patient appears in no apparent distress at this time. Patient and/or jb4 family updated on plan of care and expected duration. Pain level reassessed. Patient is alert, oriented x 3, equal unlabored respirations, skin warm/dry/pink. Vital Signs: 18:29 BP 121 / 85; Pulse 66; Resp 18; Temp 98.4; Pulse Ox 96% on R/A; Weight 40.82 kg; Pain hb 5/10; 19:00 BP 142 / 72; Pulse 90; Resp 16; Pulse Ox 97% on R/A; jb4 20:15 BP 141 / 76; Pulse 103; Resp 16; Pulse Ox 99% on R/A; jb4 21:30 BP 140 / 68; Pulse 96; Resp 18; Pulse Ox 97% on R/A; jb4 22:45 BP 147 / 71; Pulse 88; Resp 16; Pulse Ox 95% on R/A; jb4 23:00 BP 144 / 67; Pulse 83; Resp 16; Temp 98.0; Pulse Ox 97% on R/A; jb4 ED Course: 18:23 Patient arrived in ED. la1 18:29 Arm band placed on. hb 18:31 Triage completed. hb 18:35 Patient has correct armband on for positive identification. Bed in low position. Call hb light in reach. Side rails up X2. 19:15 Maintain EMS IV. Dressing intact. Site clean \\T\\ dry. Gauge \\T\\ site: 20g left forearm . IV jak 4 is intact, with fluids infusing freely, with good blood return. 19:20 Initial lab(s) drawn, by fl, sent to lab. jb4 19:27 Jamil Schultz MD is Attending Physician. nickolas 19:35 Adair Arroyo RN is Primary Nurse. jb4 20:39 XRAY Chest (1 view) In Process Unspecified. EDMS 20:57 Elda Morris MD is Hospitalizing Provider. nickolas 21:10 First set of blood cultures drawn by fl. jb4 22:56 No provider procedures requiring assistance completed. Patient admitted, IV remains in jb4 place. Administered Medications: Discontinued: NS 0.9% 1000 ml IV at 125 ml/hr continuous 20:08 Drug: NS 0.9% 1000 ml Route: IV; Rate: 125 ml/hr; Site: left forearm; jb4 21:29 Follow up: Response: No adverse reaction; IV Status: Order to discontinue infusion; IV jb4 Intake: 115ml 21:28 Drug: ProTONIX 40 mg Route: IVP; Site: left forearm; jb4 22:07 Follow up: Response: No adverse reaction jb4 21:29 Drug: NS 0.9% 500 ml Route: IV; Rate: bolus; Site: left forearm; jb4 22:00 Follow up: Response: No adverse reaction; IV Status: Completed infusion; IV Intake: jb4 500ml 21:30 Drug: Magnesium Sulfate 1 grams Route: IVPB; Infused Over: 1 hrs; Site: left forearm; jb4 22:30 Follow up: Response: No adverse reaction; IV Status: Completed infusion; IV Intake: jb4 100ml 22:27 Drug: Rocephin 1 grams Route: IV; Rate: per protocol; Site: left forearm; jb4 22:29 Follow up: Response: No adverse reaction; IV Status: Completed infusion; IV Intake: [id number] 22:30 Drug: Flagyl 500 mg Volume: 100 ml; Route: IVPB; Rate: 200 ml/hr; Infused Over: 30 jb4 mins; Site: left forearm; 23:00 Follow up: Response: No adverse reaction; IV Status: Completed infusion; IV Intake: jb4 100ml 23:03 Drug: NS 0.9% with KCl 20 mEq/L 1000 ml Route: IV; Rate: 125 ml/hr; Site: left forearm; jb4 23:03 Follow up: Response: No adverse reaction; IV Status: Infusion continued upon admission jb4 Intake: 21:29 IV: 115ml; Total: 115ml. jb4 22:00 IV: 500ml; Total: 615ml. jb4 22:29 IV: 10ml; Total: 625ml. jb4 22:30 IV: 100ml; Total: 725ml. jb4 23:00 IV: 100ml; Total: 825ml. jb4 Outcome: 20:58 Decision to Hospitalize by Provider. nickolas 23:13 Admitted to Tele accompanied by tech, via stretcher, room 407, with chart, Report jb4 called to KAMINI Cabrera 23:13 Condition: stable 23:13 Discharge instructions given to patient, Instructed on the need for admit, Demonstrated understanding of instructions. 23:35 Patient left the ED. jb4 Signatures: Dispatcher [employer] Jamil Bauer MD MD cha Attema, Lee, RN RN la1 Kayla Canchola RN RN Adair Arroyo RN RN jb4 Corrections: (The following items were deleted from the chart) : 21:35 Reassessment: Patient and/or family updated on plan of care and expected jb4 duration. Pain level reassessed. PT told the family. " call the lady who did my oxygen, I feel like I need more oxygen". Pt denies dyspnea or SOB. RT called to recheck bipap. RT at the bedside. Respirations even and unlabored. denies pain or discomfort. No s/s of distress noted. Pt is A\\T\\O x3 pt reports getting confused from time to time. Is oriented to self, time, and location, reports not knowing why he is here. Patient states feeling better. jb4 :56 21:35 Respiratory: Breath sounds with crackles in right upper lobe, right middle lobe jb4 and right lower lobe Breath sounds with wheezes in left upper lobe and left lower lobe jb4 21:57 21:30 BP 109 / 87; Pulse 100bpm; Resp 16bpm; Pulse Ox 94% BiPAP; jb4 jb4 21:59 21:56 Reassessment: Patient appears in no apparent distress at this time. Patient jb4 and/or family updated on plan of care and expected duration. Pain level reassessed. Patient is alert, oriented x 3, equal unlabored respirations, skin warm/dry/pink. PT to CT Patient states feeling better. jb4
--- NOTE | 2019-09-21 20:59 | EDPHYS ---
Physician Documentation [facility] Name: Virginia Bullard Age: 73 yrs Sex: Female : 1945 Arrival Date: 09/21/2019 Time: 18:23 Bed 5 Private MD: ED Physician Jamil Schultz HPI: 09/21 20:53 This 73 yrs old Female presents to ER via EMS with complaints of Abdominal nickolas Pain. 20:53 The patient presents with abdominal pain in the upper abdomen, in the lower abdomen. nickolas Onset: The symptoms/episode began/occurred 2 day(s) ago. The patient or guardian reports cough. Onset: The symptoms/episode began/occurred 2 day(s) ago. Severity of symptoms: At their worst the symptoms were mild, in the emergency department the symptoms are unchanged. Modifying factors: The symptoms are alleviated by nothing, the symptoms are aggravated by nothing. Severity of pain: At its worst the pain was mild in the emergency department the pain is unchanged. Historical: - Allergies: 18:50 Iodine; hb 18:50 Sulfa (Sulfonamide Antibiotics); hb - PMHx: 19:00 Arthritis; bone disease; Hyperlipidemia; Hypertension; Seizures; jb4 - PSHx: 19:00 Cervical spinal surgery; jb4 - Immunization history:: Adult Immunizations up to date. - Social history:: Smoking status: Patient/guardian denies using tobacco. - Ebola Screening: : No symptoms or risks identified at this time. - Family history:: not pertinent. ROS: 20:53 Eyes: Negative for injury, pain, redness, and discharge, ENT: Negative for injury, nickolas pain, and discharge, Neck: Negative for injury, pain, and swelling, Cardiovascular: Negative for chest pain, palpitations, and edema, Back: Negative for injury and pain, : Negative for injury, bleeding, discharge, and swelling, MS/Extremity: Negative for injury and deformity, Skin: Negative for injury, rash, and discoloration, Neuro: Negative for headache, weakness, numbness, tingling, and seizure. 20:53 Constitutional: Positive for body aches, chills, fatigue, fever, malaise. 20:53 Respiratory: Positive for cough. 20:53 Abdomen/GI: Positive for abdominal pain, nausea and vomiting, abdominal cramps. Exam: 20:53 Constitutional: This is a well developed, well nourished patient who is awake, alert, nickolas and in no acute distress. Head/Face: Normocephalic, atraumatic. Eyes: Pupils equal round and reactive to light, extra-ocular motions intact. Lids and lashes normal. Conjunctiva and sclera are non-icteric and not injected. Cornea within normal limits. Periorbital areas with no swelling, redness, or edema. ENT: Nares patent. No nasal discharge, no septal abnormalities noted. Tympanic membranes are normal and external auditory canals are clear. Oropharynx with no redness, swelling, or masses, exudates, or evidence of obstruction, uvula midline. Mucous membranes moist. Neck: Trachea midline, no thyromegaly or masses palpated, and no cervical lymphadenopathy. Supple, full range of motion without nuchal rigidity, or vertebral point tenderness. No Meningismus. Chest/axilla: Normal chest wall appearance and motion. Nontender with no deformity. No lesions are appreciated. Respiratory: Lungs have equal breath sounds bilaterally, clear to auscultation and percussion. No rales, rhonchi or wheezes noted. No increased work of breathing, no retractions or nasal flaring. Back: No spinal tenderness. No costovertebral tenderness. Full range of motion. Female : Normal external genitalia. Skin: Warm, dry with normal turgor. Normal color with no rashes, no lesions, and no evidence of cellulitis. MS/ Extremity: Pulses equal, no cyanosis. Neurovascular intact. Full, normal range of motion. Neuro: Awake and alert, GCS 15, oriented to person, place, time, and situation. Cranial nerves II-XII grossly intact. Motor strength 5/5 in all extremities. Sensory grossly intact. Cerebellar exam normal. Normal gait. Psych: Awake, alert, with orientation to person, place and time. Behavior, mood, and affect are within normal limits. 20:53 Cardiovascular: Rate: tachycardic, Rhythm: regular, Pulses: Pulses are 4+ in bilateral radial, brachial, femoral, popliteal, posterior tibial and and dorsalis pedis arteries.. Heart sounds: normal, Edema: is not appreciated. Vital Signs: 18:29 BP 121 / 85; Pulse 66; Resp 18; Temp 98.4; Pulse Ox 96% on R/A; Weight 40.82 kg; Pain hb 5/10; 19:00 BP 142 / 72; Pulse 90; Resp 16; Pulse Ox 97% on R/A; jb4 20:15 BP 141 / 76; Pulse 103; Resp 16; Pulse Ox 99% on R/A; jb4 21:30 BP 140 / 68; Pulse 96; Resp 18; Pulse Ox 97% on R/A; jb4 22:45 BP 147 / 71; Pulse 88; Resp 16; Pulse Ox 95% on R/A; jb4 23:00 BP 144 / 67; Pulse 83; Resp 16; Temp 98.0; Pulse Ox 97% on R/A; jb4 MDM: 19:27 Patient medically screened. [facility] 20:55 Data reviewed: vital signs, nurses notes, lab test result(s), EKG, radiologic studies, [facility] CT scan, plain films. 09/21 19:43 Order name: Creatinine for Radiology; Complete Time: 20:48 [facility] 09/21 19:44 Order name: Basic Metabolic Panel; Complete Time: 20:55 [facility] 09/21 19:44 Order name: CBC with Diff; Complete Time: 20:48 [facility] 09/21 19:44 Order name: LFT's; Complete Time: 20:55 [facility] 09/21 19:44 Order name: Magnesium; Complete Time: 20:55 [facility] 09/21 19:44 Order name: NT PRO-BNP; Complete Time: 20:55 [facility] 09/21 19:44 Order name: PT-INR; Complete Time: 20:48 [facility] 09/21 19:44 Order name: Troponin (emerg Dept Use Only); Complete Time: 20:55 [facility] 09/21 19:44 Order name: Lipase; Complete Time: 20:55 [facility] 09/21 19:44 Order name: Urine Culture [facility] 09/21 19:44 Order name: XRAY Chest (1 view); Complete Time: 20:55 [facility] 09/21 20:51 Order name: Blood Culture Adult (2) [facility] 09/21 20:51 Order name: CT Chest Abdomen Pelvis W/O Contrast [facility] 09/21 21:44 Order name: Urinalysis [facility] 09/21 21:44 Order name: CBC with Automated Diff [facility] 09/21 21:44 Order name: CBC with Automated Diff [facility] 09/21 21:44 Order name: Comprehensive Metabolic Panel [facility] 09/21 21:44 Order name: Comprehensive Metabolic Panel [facility] 09/21 21:44 Order name: Magnesium [facility] 09/21 21:44 Order name: Magnesium [facility] 09/21 21:44 Order name: Phosphorus [facility] 09/21 21:44 Order name: Phosphorus ED[facility] 09/21 21:44 Order name: Protime (+INR) [facility] 09/21 21:44 Order name: Protime (+INR) ED[facility] 09/21 21:44 Order name: PTT, Activated Partial Thromb [facility] 09/21 21:44 Order name: PTT, Activated Partial Thromb [facility] 09/21 19:43 Order name: IV Saline Lock; Complete Time: 19:51 [facility] 09/21 19:43 Order name: Labs collected and sent; Complete Time: 19:51 [facility] 09/21 19:44 Order name: EKG; Complete Time: 19:46 [facility] 09/21 19:44 Order name: Cardiac monitoring; Complete Time: 19:51 [facility] 09/21 19:44 Order name: EKG - Nurse/Tech; Complete Time: 20:09 [facility] 09/21 19:44 Order name: IV Saline Lock; Complete Time: 19:51 [facility] 09/21 19:44 Order name: Labs collected and sent; Complete Time: 19:51 [facility] 09/21 19:44 Order name: O2 Per Protocol; Complete Time: 19:51 [facility] 09/21 19:44 Order name: O2 Sat Monitoring; Complete Time: 19:51 [facility] 09/21 20:57 Order name: IV Saline Lock - Large Bore; Complete Time: 21:16 [facility] 09/21 21:44 Order name: CONS Physician Consult [facility] 09/21 21:44 Order name: Clear Liquid EDAL Administered Medications: Discontinued: NS 0.9% 1000 ml IV at 125 ml/hr continuous 20:08 Drug: NS 0.9% 1000 ml Route: IV; Rate: 125 ml/hr; Site: left forearm; jb4 21:29 Follow up: Response: No adverse reaction; IV Status: Order to discontinue infusion; IV jb4 Intake: 115ml 21:28 Drug: ProTONIX 40 mg Route: IVP; Site: left forearm; jb4 22:07 Follow up: Response: No adverse reaction jb4 21:29 Drug: NS 0.9% 500 ml Route: IV; Rate: bolus; Site: left forearm; jb4 22:00 Follow up: Response: No adverse reaction; IV Status: Completed infusion; IV Intake: jb4 500ml 21:30 Drug: Magnesium Sulfate 1 grams Route: IVPB; Infused Over: 1 hrs; Site: left forearm; jb4 22:30 Follow up: Response: No adverse reaction; IV Status: Completed infusion; IV Intake: jb4 100ml 22:27 Drug: Rocephin 1 grams Route: IV; Rate: per protocol; Site: left forearm; jb4 22:29 Follow up: Response: No adverse reaction; IV Status: Completed infusion; IV Intake: [id number] 22:30 Drug: Flagyl 500 mg Volume: 100 ml; Route: IVPB; Rate: 200 ml/hr; Infused Over: 30 jb4 mins; Site: left forearm; 23:00 Follow up: Response: No adverse reaction; IV Status: Completed infusion; IV Intake: jb4 100ml 23:03 Drug: NS 0.9% with KCl 20 mEq/L 1000 ml Route: IV; Rate: 125 ml/hr; Site: left forearm; jb4 23:03 Follow up: Response: No adverse reaction; IV Status: Infusion continued upon admission jb4 Disposition: 09/21/19 20:58 Hospitalization ordered by Elda Morris for Inpatient Admission. Preliminary diagnosis are Abdominal tenderness, Elevated white blood cell count, Hypomagnesemia, Fever, unspecified, Weakness, Hypokalemia. - Bed requested for Telemetry/MedSurg (Inpatient). - Status is Inpatient Admission. jb4 - Condition is Stable. - Problem is new. - Symptoms have improved. UTI on Admission? Yes Signatures: Dispatcher [employer] EDAL Jamil Schultz MD MD cha Garcia, Cindy, RN KAMINI Kayla Canchola RN RN hb Bryson, James, RN RN jb4 Corrections: (The following items were deleted from the chart) 20:04 19:44 BASIC METABOLIC PANEL+C.LAB.BRZ ordered. EDAL EDMS 20:04 19:44 CBC+H.LAB.BRZ ordered. EDAL EDMS 20:04 19:44 HEPATIC FUNCTION+C.LAB.BRZ ordered. EDAL EDMS 20:04 19:44 LIPASE+C.LAB.BRZ ordered. EDAL EDMS 20:59 20:58 Hospitalization Ordered by Elda Morris MD for Inpatient Admission. Preliminary nickolas diagnosis is Abdominal tenderness; Elevated white blood cell count; Hypomagnesemia; Fever, unspecified; Weakness. Bed requested for Telemetry/MedSurg (Inpatient). Status is Inpatient Admission. Condition is Stable. Problem is new. Symptoms have improved. UTI on Admission? Yes. [facility] 21:52 21:36 Abdomen ordered. [facility] EDAL 22:35 20:59 09/21/2019 20:58 Hospitalization Ordered by Elda Morris MD for Inpatient cg Admission. Preliminary diagnosis is Abdominal tenderness; Elevated white blood cell count; Hypomagnesemia; Fever, unspecified; Weakness; Hypokalemia. Bed requested for Telemetry/MedSurg (Inpatient). Status is Inpatient Admission. Condition is Stable. Problem is new. Symptoms have improved. UTI on Admission? Yes. [facility] 23:35 22:35 09/21/2019 20:58 Hospitalization Ordered by Elda Morris MD for Inpatient jb4 Admission. Preliminary diagnosis is Abdominal tenderness; Elevated white blood cell count; Hypomagnesemia; Fever, unspecified; Weakness; Hypokalemia. Bed requested for Telemetry/MedSurg (Inpatient). Status is Inpatient Admission. Condition is Stable. Problem is new. Symptoms have improved. UTI on Admission? Yes. cg
[2019-09-21] MEDS ORDERED: PANTOPRAZOLE 40 MG INJ ONE (21:22)
[2019-09-21] MEDS ORDERED: NS KCL 20MEQ 1,000 ML IV ONE (21:22)
[2019-09-21] MEDS ORDERED: MAGNESIUM SULFATE 1 gm IVPB 1 GM/100 ML BAG IV ONE (21:23)
[2019-09-21] MEDS ORDERED: ONDANSETRON 4 MG/2 ML VIAL IV PRN (21:38)
[2019-09-21] MEDS ORDERED: ACETAMINOPHEN 500 MG TAB PO PRN (21:38)
[2019-09-21] MEDS: NA CHLORIDE 0.9% 1,000 ML IV SCH (22:00)
[2019-09-21] MEDS ORDERED: METRONIDAZOLE 500mg IVPB 500 MG/100 ML BAG IV ONE (22:22)
[2019-09-21] MEDS ORDERED: CEFTRIAXONE/SWI 1gm 1 GM/10 ML SYR ONE (22:22)
[2019-09-22] MEDS: METRONIDAZOLE 500mg IVPB 500 MG/100 ML BAG IV SCH ×3 (00:36→16:55)
[2019-09-22] MEDS ORDERED: Levofloxacin500mg IV 500 MG/100 ML BAG IV ONE ×2 (01:00→22:00)
[2019-09-22] MEDS: MORPHINE 4 MG/ML SYR IV PRN ×3 (04:08→20:15)
[2019-09-22] MEDS: NA CHLORIDE 0.9% 1,000 ML IV SCH ×3 (05:11→12:00)
[2019-09-22 06:04] LABS: Urine Appearance CLEAR; Urine Bilirubin NEGATIVE (NEG); Urine Blood TRACE (NEG); Urine Color YELLOW; Urine Glucose NEGATIVE (NEG); Urine Protein 1+ (NEG); Urine Specific Gravity 1.015 (1.005-1.030); Urine pH 6.5 (5.0-7.0)
[2019-09-22 06:07] LABS: Urine Microscopic Reflex ORDER UMIC
[2019-09-22 06:17] LABS: Urine Bacteria <20 /HPF (<20); Urine Culture Reflex Order NOT NEEDED; Urine RBC <5 /HPF (NONE SEEN)
[2019-09-22 06:49] LABS: Absolute Lymphocytes (CBC) 1.5 K/uL (0.7-4.9); Basophils % 0.3 % (0-1.3); Hematocrit 31.7 % (36.0-45.0); Lymphocytes % 13.4 % (15.3-44.8); MPV 6.3 fL (7.6-11.3); RBC Red Blood Cell Count 3.62 M/uL (3.86-4.86)
[2019-09-22 07:00] LABS: Protime INR 1.23
[2019-09-22] MEDS ORDERED: SODIUM CHLORIDE 0.9% 10ML INJ IV PRN (07:08)
[2019-09-22 07:13] LABS: ALT/SGPT 17 U/L (12-78); AST/SGOT 21 U/L (15-37); Albumin 2.8 g/dL (3.4-5.0); Alkaline Phosphatase 103 U/L (45-117); BUN Blood Urea Nitrogen 12 mg/dL (7-18); Bicarbonate 20 mmol/L (21-32); Bilirubin Total 0.4 mg/dL (0.2-1.0); Glucose Level 93 mg/dL (74-106); Phosphorus 1.9 mg/dL (2.5-4.9); Potassium 3.4 mmol/L (3.5-5.1); Protein, Total 6.9 g/dL (6.4-8.2); Sodium Level 133 mmol/L (136-145)
--- NOTE | 2019-09-22 07:27 | P.HP ---
Certification for Inpatient Patient admitted to: Observation With expected LOS: <2 Midnights Patient will require the following post-hospital care: None Practitioner: I am a practitioner with admitting privileges, knowledge of patient current condition, hospital course, and medical plan of care. Services: Services provided to patient in accordance with Admission requirements found in Title 42 Section 412.3 of the Code of Federal Regulations Patient History Date of Service: 09/21/19 History of Present Illness: Patient is a 73-year-old female who comes into the hospital with abdominal discomfort. Pain was in the lower abdomen and has been going on for the last couple of days. Patient was recently in the hospital for peptic ulcer bleeding. Patient was treated at [facility]. Patient has done well since being home. However 48 hr ago patient started having some abdominal discomfort and since her symptoms were getting worse she had her [id number] called EMS and she was brought to our hospital. Initial concern was for diverticulitis. However, CT of the abdomen and pelvis as well as CT of the chest without contrast did not reveal any abnormalities. Patient does have history of osteoarthritis diffusely. Patient has scoliosis as well as hip arthroplasty. Patient will be admitted for possible colitis or diverticulitis. Allergies Iodinated Contrast Media Allergy (Verified 10/29/17 17:27) Anaphylaxis iodine Allergy (Verified 10/29/17 17:27) Unknown Sulfa (Sulfonamide Antibiotics) Allergy (Verified 10/29/17 17:27) Unknown Home Medications: Pravastatin Sodium [Pravachol] 1 tab PO BEDTIME 10/29/17 Albuterol Sulfate [Proair Hfa] 1 puff IH Q4HP PRN 09/21/19 Amlodipine Besylate 10 mg PO DAILY 09/21/19 Diclofenac Na [Voltaren D.r*] 75 mg PO BID 09/21/19 Ferrous Sulfate [Iron] 325 mg PO TID 09/21/19 Fluoxetine HCl [Prozac] 40 mg PO DAILY 09/21/19 Meloxicam 15 mg PO DAILY 09/21/19 Oxybutynin Chloride 5 mg PO TID 09/21/19 Pantoprazole [Protonix Tab*] 40 mg PO BID 09/21/19 Senosides [Senokot] 1 tab PO BID 09/21/19 - Past Medical/Surgical History Has patient received pneumonia vaccine in the past: No Diabetic: No -: HTN -: Arthritis -: Dwarfism -: Bilateral hip surgery -: Bilateral knee surgery - Family History Father Medical History: Heart disease Notes: SD Mother Medical History: Heart disease Notes: SD - Social History Smoking Status: Never smoker Alcohol use: No CD- Drugs: No Caffeine use: No Place of Residence: Home Review of Systems 10-point ROS is otherwise unremarkable Physical Examination - Vital Signs Temperature: 98 F Blood Pressure: 142/79 Pulse: 90 Respirations: 20 Pulse Ox (%): 97 - Physical Exam General: Alert, In no apparent distress, Oriented x3 HEENT: Atraumatic, PERRLA, Mucous membr. moist/pink, EOMI, Sclerae nonicteric Neck: Supple, 2+ carotid pulse no bruit, No LAD, Without JVD or thyroid abnormality Respiratory: Clear to auscultation bilaterally, Normal air movement Cardiovascular: Regular rate/rhythm, Normal S1 S2, No murmurs Gastrointestinal: Normal bowel sounds, Soft and benign, Non-distended, No rebound, No guarding, Tenderness (Bilateral lower quadrant-mild abdominal tenderness) Musculoskeletal: No clubbing, No swelling, Tenderness Integumentary: No rashes Neurological: Normal speech, Sensation intact, Cranial nerves 3-12 intact, Normal affect, Abnormal gait, Abnormal strength (Patient strength is 4/5), Abnormal tone Lymphatics: No axilla or inguinal lymphadenopathy - Studies Laboratory Data (last 24 hrs) 09/21/19 19:50: PT 13.9 H, INR 1.19 09/21/19 19:50: WBC 16.9 H D, Hgb 13.1 D, Hct 37.4 D, Plt Count 655 H 09/21/19 19:50: Sodium 132 L, Potassium 3.1 L, BUN 16 D, Creatinine 0.62, Glucose 97, Magnesium 1.7 L, Total Bilirubin 0.6, AST 28, ALT 22, Alkaline Phosphatase 117, Lipase 188 09/21/19 19:50: Creatinine 0.67 09/21/19 19:43: WBC Cancelled, Hgb Cancelled, Hct Cancelled, Plt Count Cancelled 09/21/19 19:43: Sodium Cancelled, Potassium Cancelled, BUN Cancelled, Creatinine Cancelled, Glucose Cancelled, Total Bilirubin Cancelled, AST Cancelled, ALT Cancelled, Alkaline Phosphatase Cancelled, Lipase Cancelled Assessment & Plan - Problems (Diagnosis) (1) Abdominal pain Current Visit: Yes Status: Acute (2) Generalized weakness Current Visit: Yes Status: Acute (3) Dwarfism Current Visit: Yes Status: Acute (4) Osteoarthritis Current Visit: Yes Status: Acute (5) Chronic pain Onset Date: 10/31/17 Current Visit: No Status: Chronic Qualifiers: Chronic pain type: chronic pain syndrome Qualified Code(s): G89.4 - Chronic pain syndrome (6) Depression with anxiety Current Visit: No Status: Chronic (7) Hyperlipidemia Onset Date: 10/31/17 Current Visit: No Status: Chronic Qualifiers: Hyperlipidemia type: unspecified Qualified Code(s): E78.5 - Hyperlipidemia , unspecified (8) Hypertension Current Visit: No Status: Chronic Qualifiers: Hypertension type: essential hypertension Qualified Code(s): I10 - Essential (primary) hypertension (9) Seizure disorder Current Visit: No Status: Suspected (10) Leukocytosis Current Visit: Yes Status: Acute (11) Thrombocytosis Current Visit: Yes Status: Acute - Plan Plan: 1. Continue with IV hydration and IV antibiotics 2. Clear liquid diet and advance as tolerated 3. Monitor stools as well as monitor electrolytes 4. Strict blood pressure and blood sugar control 5. Repeat white blood cell count 6. Cultures are pending 7. Continue with anti epileptics 8. GI and DVT prophylaxis Discharge Plan: Home Plan to discharge in: 48 Hours - Advance Directives Does patient have a Living Will: No Does patient have a Durable POA for Healthcare: No - Code Status/Comfort Care Code Status Assessed: Yes Code Status: Full Code Critical Care: No Time Spent Managing PTS Care (In Minutes): 45
[2019-09-22] MEDS ORDERED: POTASSIUM PHOS 30 MM in NA CHLORIDE 0.9% 500 ML IV ONE (08:00)
--- NOTE | 2019-09-22 08:44 | EKG ---
Test Date: 2019-09-21 Test Time: 20:15:19 Green Building Architect: VINOD MEASUREMENT RESULTS: Intervals: Rate: 94 ND: 160 QRSD: 78 QT: 376 QTc: 470 [place]: P: 38 ND: 160 QRS: 38 T: 59 INTERPRETIVE STATEMENTS: Normal sinus rhythm Normal ECG Compared to ECG 04/27/2018 20:14:02 No significant changes Electronically Signed On 09-22-19 08:44:16 CDT by Abrahan Crabtree
[2019-09-22] MEDS ORDERED: ENOXAPARIN 40 MG/0.4 ML SQ SCH (09:00)
[2019-09-22] MEDS: AMLODIPINE 10 MG TAB PO SCH (10:21)
[2019-09-22] MEDS: OXYBUTYNIN CHLORIDE 5 MG TAB PO SCH ×3 (10:22→20:18)
[2019-09-22] MEDS: FLUOXETINE 20 MG CAP PO SCH (10:22)
[2019-09-22] MEDS: PANTOPRAZOLE 40 MG INJ IVP SCH ×2 (10:22→20:17)
[2019-09-22] MEDS: SENOSIDES 8.6 MG TAB PO SCH ×2 (10:28→21:00)
--- NOTE | 2019-09-22 11:28 | P.PN ---
Subjective Date of Service: 09/22/19 Primary Care Provider: Leeroy Robles NP; Pain management-Locally Chief Complaint: Abdominal pain Subjective: Other (Abdominal pain improved. Patient has chronic pain due to rheumatoid arthritis and/or dwarfism. Patient recently hospitalized for peptic ulcer.) Physical Examination - Vital Signs Temperature: 98.4 F Blood Pressure: 141/67 Pulse: 90 Respirations: 18 Pulse Ox (%): 98 - Physical Exam General: Alert, In no apparent distress, Oriented x3, Cooperative HEENT: Atraumatic Neck: Supple Respiratory: Clear to auscultation bilaterally, Normal air movement Cardiovascular: Normal pulses, Regular rate/rhythm Gastrointestinal: Normal bowel sounds, Soft and benign, Non-distended, No masses , No rebound, No guarding, Tenderness (Mild pain to the abdomen, nonspecific) Integumentary: No erythema, No warmth, No cyanosis, Other (Chronic pain to back and extremities) Neurological: Normal speech, Normal strength at 5/5 x4 extr, Normal tone, Normal affect - Studies Laboratory Data (last 24 hrs) 09/21/19 19:50: PT 13.9 H, INR 1.19 09/21/19 19:50: WBC 16.9 H D, Hgb 13.1 D, Hct 37.4 D, Plt Count 655 H 09/21/19 19:50: Sodium 132 L, Potassium 3.1 L, BUN 16 D, Creatinine 0.62, Glucose 97, Magnesium 1.7 L, Total Bilirubin 0.6, AST 28, ALT 22, Alkaline Phosphatase 117, Lipase 188 09/21/19 19:50: Creatinine 0.67 09/21/19 19:43: WBC Cancelled, Hgb Cancelled, Hct Cancelled, Plt Count Cancelled 09/21/19 19:43: Sodium Cancelled, Potassium Cancelled, BUN Cancelled, Creatinine Cancelled, Glucose Cancelled, Total Bilirubin Cancelled, AST Cancelled, ALT Cancelled, Alkaline Phosphatase Cancelled, Lipase Cancelled Assessment & Plan Discharge Plan: Home Plan to discharge in: 24 Hours Physician Review Additional Text: Impression: Abdominal pain with recent peptic ulcer likely underlying GERD Dwarfism Rheumatoid arthritis with chronic pain Hypertension Hyponatremia likely mild dehydration Plan: Abdominal pain with recent peptic ulcer likely underlying GERD: Patient stable this time. Case discussed with GI. GI plans for EGD later today. Will continue monitor closely. Will start IV Protonix b.i.d.. Patient recently hospitalized at another facility for peptic ulcer. Continue with IV antibiotic therapy. Patient previously on a nonsteroidal anti-inflammatories. Will need to confirm home medications. Patient has chronic pain. Will likely need to continue to monitor closely. Await findings from EGD. Anticipate home likely tomorrow if clinically stable. Dwarfism: Review and and monitor closely. Rheumatoid arthritis with chronic pain: Will provide medication for pain. Will confirm home medication. Will need to make sure patient is not taking any nonsteroidal anti-inflammatories. Will have physical therapy assess ambulation. Hypertension: Will confirm and restart home medication. Hyponatremia likely mild dehydration: Continue IV fluids. Electrolyte protocol in place. Time Spent Managing Pts Care (In Minutes): 55
[2019-09-22] MEDS ORDERED: TRAMADOL HCL 50 MG TAB PO PRN (13:23)
[2019-09-22] MEDS ORDERED: HYDROCODONE/APAP 7.5/325 MG TAB PO PRN (13:25)
[2019-09-22] MEDS ORDERED: PROPOFOL 200 MG/20 ML VIAL IV ONE ×2 (18:04)
--- NOTE | 2019-09-22 18:46 | ENDO RPT ---
[address], [address] EGD PROCEDURE REPORT EXAM DATE: 09/22/2019 PATIENT NAME: Virginia Bullard MR#: [id number] BIRTHDATE: 1945 ATTENDING: Sudeep Parks Dr STATUS: inpatient SUPERINTENDENT POWER: Gail Narvaez and Hamida Ambrose RN INDICATIONS: The patient is a 73 yr old Female here for an EGD due to mid epigastric abdominal pain, left upper quadrant abdominal pain, history of bleeding peptic ulcer disease, and anemia PROCEDURE PERFORMED: EGD with biopsy MEDICATIONS: Per Anesthesia. TOPICAL ANESTHETIC: none CONSENT: The patient understands the risks and benefits of the procedure and understands that these risks include, but are not limited to: sedation, allergic reaction, infection, perforation and/or bleeding. Alternative means of evaluation and treatment include, among others: physical exam, x-rays, and/or surgical intervention. The patient elects to proceed with this endoscopic procedure. DESCRIPTION OF PROCEDURE: During intra-op preparation period all mechanical medical equipment was checked for proper function. Hand hygiene and appropriate measures for infection prevention was taken. Procedure, possible complications, and alternatives including but not limited to the possibility of bleeding, perforation, tear, infection, sepsis, need for surgery, need for blood transfusion, and anesthesia related complications were explained to the patient. After the risks, benefits and alternatives of the procedure were thoroughly explained, Informed consent was verified, confirmed and timeout was successfully executed by the treatment team. The patient was placed in the left lateral position. The patient was anesthetized with topical anesthesia. Through the anesthetized oropharyngeal area, the scope was passed without any difficulty. The Pentax [id number] ([id number]) endoscope was introduced through the mouth and advanced to the second portion of the duodenum. Retroflexed views revealed a small hiatal hernia. The gastroscope was then slowly withdrawn and removed. A small hiatal hernia was found Mild Atrophic gastritis was found in the body and the antrum of the stomach. Multiple biopsies were obtained and sent to pre-pyloric antrum on either side of the pylorus. A 3 mm clean-based ulcer was found at the pylorus. Duodenitis was found in the bulb of the duodenum. Multiple (4) small 2-4 mm clean-based ulcers were found in the bulb of the duodenum. ADVERSE EVENTS: There were no complications. IMPRESSIONS: 1. Small hiatal hernia 2. Mild atrophic gastritis in the body and the antrum of the stomach, s/p biopsies side of the pylorus 4. 3 mm clean-based ulcer at the pylorus 5. Duodenitis in the bulb of the duodenum 6. Multiple (4) small 2-4 mm clean-based ulcers in the apex of the bulb of the duodenum with secondary mild stenosis RECOMMENDATIONS: 1. await biopsy results 2. acid suppression therapy 3. check gastrin level REPEAT EXAM: Return in 3 month(s) for EGD. Sudeep Parks Dr eSigned: Sudeep Parks Dr 09/22/2019 6:46 PM cc: Sylvester Barreto CPT CODES: ICD9 CODES: PATIENT NAME: Virginia Bullard MR#: [id number]
[2019-09-22] MEDS: ENOXAPARIN 30 MG/0.3 ML SQ SCH (20:18)
[2019-09-22] MEDS ORDERED: ATORVASTATIN 10 MG TAB PO SCH (21:00)
[2019-09-22] MEDS ORDERED: Levofloxacin 250mg IV 250 MG/50 ML BAG IV SCH (21:00)
[2019-09-22] MEDS ORDERED: PRAVASTATIN SODIUM PO SCH (21:00)
[2019-09-23] MEDS: METRONIDAZOLE 500mg IVPB 500 MG/100 ML BAG IV SCH ×2 (00:54→07:52)
[2019-09-23] MEDS: NA CHLORIDE 0.9% 1,000 ML IV SCH (00:55)
[2019-09-23 05:48] VITALS: BMI 39.2
[2019-09-23 06:38] LABS: Absolute Lymphocytes (CBC) 1.1 K/uL (0.7-4.9); Basophils % 0.4 % (0-1.3); Lymphocytes % 11.5 % (15.3-44.8); MPV 6.2 fL (7.6-11.3); RBC Red Blood Cell Count 3.52 M/uL (3.86-4.86)
[2019-09-23 06:57] LABS: BUN Blood Urea Nitrogen 6 mg/dL (7-18); Bicarbonate 19 mmol/L (21-32); Glucose Level 80 mg/dL (74-106); Magnesium 1.7 mg/dL (1.8-2.4); Potassium 3.6 mmol/L (3.5-5.1); Sodium Level 136 mmol/L (136-145)
[2019-09-23] MEDS ORDERED: POTASSIUM CL SA 10 MEQ TAB PO ONE (06:59)
[2019-09-23] MEDS ORDERED: MAGNESIUM SULFATE 1 gm IVPB 1 GM/100 ML BAG IV ONE (06:59)
[2019-09-23 07:11] LABS: Phosphorus 1.8 mg/dL (2.5-4.9)
[2019-09-23] MEDS: POTASS/SODIUM PHOSPHATE 1 PKT POWD.PACK PO SCH ×3 (07:51→09:58)
[2019-09-23] MEDS: OXYBUTYNIN CHLORIDE 5 MG TAB PO SCH ×2 (07:51→13:07)
[2019-09-23] MEDS: SENOSIDES 8.6 MG TAB PO SCH (07:51)
[2019-09-23] MEDS: ENOXAPARIN 30 MG/0.3 ML SQ SCH (07:52)
[2019-09-23] MEDS: FLUOXETINE 20 MG CAP PO SCH (07:52)
[2019-09-23] MEDS: PANTOPRAZOLE 40 MG INJ IVP SCH (07:52)
[2019-09-23] MEDS: AMLODIPINE 10 MG TAB PO SCH (08:16)
[2019-09-23 08:20] VITALS: O2SAT 98
--- NOTE | 2019-09-23 09:47 | P.DS ---
Admission Date: 09/21/19 Discharge Date: 09/23/19 Primary Care Provider: Leeroy Robles NP; Pain management-Locally Disposition: ROUTINE DISCHARGE Discharge Condition: GOOD Reason for Admission: Abdominal pain Consultations: GI-Dr. Parks Procedures: CT Scan: No acute intra thoracic or intra-abdominal abnormality. No bowel obstruction or perforation. Severe scoliotic deformity with multiple likely remote compression fractures and vertebral anomalies. 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 Endoscopy: Endoscopy performed. No complications noted. Impression: 1. Small hiatal hernia. 2. Mild atrophic gastritis in the body and the antrum of the stomach, status post biopsies 3. 3 mm clean based ulcer at the pylorus. 4. Duodenitis in the bulb of the duodenum. 5. Multiple (4) small 2-4 mm clean based ulcers in the apex of the bulb of the duodenum with secondary mild stenosis. Recommendations: Follow up biopsy, continue acid suppression therapy. Gastrin level obtained. EGD recommended in 3 months. Medical Problem List: Abdominal pain likely secondary to small hiatal hernia, mild atrophic gastritis , 3 mm clean based ulcer at the pylorus, duodenitis in the bulb of the duodenum , multiple small clean based ulcers to the duodenum with mild stenosis Dwarfism Rheumatoid arthritis with chronic pain Hypertension Hyponatremia likely mild dehydration Severe scoliotic deformity with remote compression fractures and vertebral anomalies Avascular necrosis of bilateral hips, left greater than right Brief History of Present Illness: 73-year-old female with history of dwarfism presented to emergency room with abdominal pain. Pain was mainly to the lower abdomen. Patient recently hospitalized for peptic ulcer bleeding. Patient was treated at [facility]. Initial CT scan showed no intrathoracic or intraabdominal abnormality. Patient was admitted for further evaluation and treatment. Hospital Course: Patient presented with abdominal pain. Initial CT scan showed no intrathoracic or intra-abdominal acute abnormality. Patient was given IV fluids and antibiotic therapy. GI was consulted due to recent evaluation at [facility] for GI bleed. GI recommended repeat EGD to further evaluate. Abdominal pain improved. EGD showed small hiatal hernia, mild atrophic gastritis, 3 mm clean based ulcer at the pylorus, duodenitis in the bulb of the duodenum, and multiple small clean based ulcers to the duodenum with mild stenosis. No complications noted after EGD. Patient without significant abdominal pain at this time. Patient tolerating diet. At discharge patient will continue with Protonix 40 mg 1 pill twice daily. Further adjustment can be done by GI in the future. Patient will need a follow up with GI in 2-4 weeks to follow up this hospitalization and to go over biopsy report. Patient will need repeat EGD in 3 months. Patient will need to continue with a GERD diet. Education on GERD/hiatal hernia/gastritis/duodenitis will be provided. Recommended no further use of nonsteroidal anti-inflammatories. This will mean patient will no longer take diclofenac or meloxicam. Patient has chronic pain due to her rheumatoid arthritis. Other options for pain would need to be utilized. Patient with history of dwarfism, rheumatoid arthritis, chronic pain, severe scoliotic deformity with remote compression fractures and vertebral anomalies. CT scan also revealed avascular necrosis of the bilateral hips, left greater than right. Patient may benefit with orthopedic evaluation as an outpatient to further address. Patient is seen by pain management as an outpatient. Recommend no further use of nonsteroidal anti-inflammatories as recommended above. Recommend no further use of diclofenac or meloxicam. Patient will continue with her other pain medication-[place] 5/325 mg 1 pill 3 times a day. A limited supply of tramadol 50 mg 1 pill 3 times a day as needed for pain will be provided. Recommend follow up with pain management to further monitor and address. Patient with hypertension. At discharge she will continue with her medication- Norvasc 10 mg daily. Recommend to maintain blood pressures less 150/80. Further adjustment can be done by her PCP. Patient had hyponatremia likely from dehydration. This resolved with IV fluids. Patient with hyperlipidemia. Patient will continue with pravastatin 20 mg daily. Patient with depression/anxiety. Patient will continue with Prozac 40 mg 1 pill twice daily. Patient with urinary incontinence. Patient will continue with oxybutynin 5 mg 1 pill 3 times a day. Patient with mild anemia. At discharge will recommend to continue with multi vitamin with iron daily. Patient no longer needs to take iron 325 mg. Vital Signs/Physical Exam: Temp Pulse Resp BP Pulse Ox 97.3 F 92 H 18 153/70 H 98 09/23/19 08:00 09/23/19 08:16 09/23/19 09:15 09/23/19 08:16 09/23/19 09:15 General: Alert, In no apparent distress, Oriented x3 HEENT: Atraumatic Neck: Supple Respiratory: Clear to auscultation bilaterally, Normal air movement Cardiovascular: Normal pulses, Regular rate/rhythm Gastrointestinal: Normal bowel sounds, Soft and benign, Non-distended, No tenderness, No masses, No rebound, No guarding Integumentary: Other (Patient with short stature. Scoliosis noted.) Laboratory Data at Discharge: WBC 9.7 K/uL (4.3-10.9) 09/23/19 05:30 Hgb 11.0 g/dL (12.0-15.0) L 09/23/19 05:30 Hct 31.0 % (36.0-45.0) L 09/23/19 05:30 Plt Count 617 K/uL (152-406) H 09/23/19 05:30 PT 14.4 SECONDS (9.5-12.5) H 09/22/19 06:06 INR 1.23 09/22/19 06:06 APTT 31.8 SECONDS (24.3-36.9) 09/22/19 06:06 Sodium 136 mmol/L (136-145) 09/23/19 05:30 Potassium 3.6 mmol/L (3.5-5.1) 09/23/19 05:30 BUN 6 mg/dL (7-18) L 09/23/19 05:30 Creatinine 0.39 mg/dL (0.55-1.3) L 09/23/19 05:30 Glucose 80 mg/dL (74-106) 09/23/19 05:30 Phosphorus 1.8 mg/dL (2.5-4.9) L 09/23/19 05:30 Magnesium 1.7 mg/dL (1.8-2.4) L 09/23/19 05:30 Total Bilirubin 0.4 mg/dL (0.2-1.0) 09/22/19 06:06 AST 21 U/L (15-37) 09/22/19 06:06 ALT 17 U/L (12-78) 09/22/19 06:06 Alkaline Phosphatase 103 U/L (45-117) 09/22/19 06:06 Lipase 188 U/L (73-393) 09/21/19 19:50 Home Medications: Pravastatin Sodium [Pravachol] 1 tab PO BEDTIME 10/29/17 Albuterol Sulfate [Proair Hfa] 1 puff IH Q4HP PRN 09/21/19 Amlodipine Besylate 10 mg PO DAILY 09/21/19 Fluoxetine HCl [Prozac] 40 mg PO BID 09/21/19 Oxybutynin Chloride 5 mg PO TID 09/21/19 Senosides [Senokot*] 1 tab PO BID 09/21/19 Hydrocodone 5/APAP 325 [[place] 5/325*] 1 tab PO TID 09/22/19 Multivitamin/Iron/Folic Acid [Multi-Day Plus Iron Tablet] 1 each PO DAILY #90 tablet 09/23/19 Pantoprazole [Protonix Tab*] 40 mg PO BID #60 tab 09/23/19 traMADol HCL [Ultram*] 50 mg PO TID PRN #15 tab 09/23/19 New Medications: Multivitamin/Iron/Folic Acid [Multi-Day Plus Iron Tablet] 1 each PO DAILY #90 tablet Pantoprazole [Protonix Tab*] 40 mg PO BID #60 tab traMADol HCL [Ultram*] 50 mg PO TID PRN #15 tab PRN Reason: Pain Scale 2-4 (Mild) Patient Discharge Instructions: 1. Recommend follow up with her PCP in 1 week to follow up this hospitalization. 2. Patient presented with abdominal pain. Initial CT scan showed no intrathoracic or intra-abdominal acute abnormality. Patient was given IV fluids and antibiotic therapy. GI was consulted due to recent evaluation at [facility] for GI bleed. GI recommended repeat EGD to further evaluate. Abdominal pain improved. EGD showed small hiatal hernia, mild atrophic gastritis, 3 mm clean based ulcer at the pylorus, duodenitis in the bulb of the duodenum, and multiple small clean based ulcers to the duodenum with mild stenosis. No complications noted after EGD. Patient without significant abdominal pain at this time. Patient tolerating diet. At discharge patient will continue with Protonix 40 mg 1 pill twice daily. Further adjustment can be done by GI in the future. Patient will need a follow up with GI in 2-4 weeks to follow up this hospitalization and to go over biopsy report. Patient will need repeat EGD in 3 months. Patient will need to continue with a GERD diet. Education on GERD/hiatal hernia/gastritis/ duodenitis will be provided. Recommended no further use of nonsteroidal anti- inflammatories. This will mean patient will no longer take diclofenac or meloxicam. Patient has chronic pain due to her rheumatoid arthritis. Other options for pain would need to be utilized. 3. Patient with history of dwarfism , rheumatoid arthritis, chronic pain, severe scoliotic deformity with remote compression fractures and vertebral anomalies. CT scan also revealed avascular necrosis of the bilateral hips, left greater than right. Patient may benefit with orthopedic evaluation as an outpatient to further address. Patient is seen by pain management as an outpatient. Recommend no further use of nonsteroidal anti-inflammatories as recommended above. Recommend no further use of diclofenac or meloxicam. Patient will continue with her other pain medication-[place] 5/325 mg 1 pill 3 times a day. A limited supply of tramadol 50 mg 1 pill 3 times a day as needed for pain will be provided. Recommend follow up with pain management to further monitor and address. 4. Patient with hypertension. At discharge she will continue with her medication-Norvasc 10 mg daily. Recommend to maintain blood pressures less 150/80. Further adjustment can be done by her PCP. 5. Patient had hyponatremia likely from dehydration. This resolved with IV fluids. 6. Patient with hyperlipidemia. Patient will continue with pravastatin 20 mg daily. 7. Patient with depression /anxiety. Patient will continue with Prozac 40 mg 1 pill twice daily. 8. Patient with urinary incontinence. Patient will continue with oxybutynin 5 mg 1 pill 3 times a day. 9. Patient with mild anemia. At discharge will recommend to continue with multi vitamin with iron daily. Patient no longer needs to take iron 325 mg. Diet: GERD diet Activity: Fall precautions Time spent managing pt's care (in minutes): 55
[2019-09-23 12:19] VITALS: BP 116/57; TEMP 99.6
--- NOTE | 2019-09-24 13:21 | RAD REPORT ---
EXAM DESCRIPTION: CT - Chest Abd Pelvis Wo Con - 09/22/2019 4:41 am CLINICAL HISTORY: 73 years Female Abdominal distention;Cough COMPARISON: None TECHNIQUE: Images were obtained in axial, sagittal, and coronal planes. No intravenous contrast was administered. This exam was performed according to our departmental dose-optimization program which includes use of Automated Exposure Control, adjustment of the mA and/or kV according to patient size and/or use of i terative reconstruction technique. FINDINGS: CT chest: No dilatation aortic root. Marked tortuosity descending aorta. No pericardial or pleural effusions bilaterally. No lung parenchymal infiltrates or nodules seen. Calcified granuloma posterior left upper lobe. Parenchymal stranding right lung. No pneumothorax bilaterally. No acute os seous abnormality. Marked degenerative change shoulders bilaterally. Kyphoscoliosis thoracolumbar spi ne. Multiple compression fractures thoracic spine with vertebral anomalies. Previous sternotomy. Hype rinflation. Calcified left hilar lymph nodes. CT abdomen and pelvis: No abnormality involving the liver, spleen, pancreas, gallbladder, or adrenal glands bilaterally. No obstructing renal calcifications bilaterally. No hydronephrosis bilaterally. U nremarkable bladder. Appendix not well identified however no secondary signs for appendicitis. No bow el obstruction or perforation. No dilatation abdominal aorta. No adenopathy or abnormal fluid collect ions. Multiple compression fractures of indeterminate age lumbar spine. Deformity with fragmentation femoral heads bilaterally left greater than right. Associated flattening. IMPRESSION: No acute intrathoracic abnormality. No infiltrates seen. Prior granulomatous disease. No acute intra-abdominal abnormality. No bowel obstruction or perforation. Severe scoliotic deformity with multiple likely more remote compression fractures and vertebral anoma lies. Avascular necrosis hips bilaterally more pronounced on the left. Electronically signed by: Paulina Hein MD 09/21/2019 10:19 PM CDT Due to temporary technical issues with the PACS/Fluency reporting system, reports are being signed by the in house radiologist as a courtesy to ensure prompt reporting. The interpreting radiologist is f eviely responsible for the content of the report.
--- OUTSIDE RECORDS SUMMARY | 2019-09-30 19:43 | XMS REPORT ---
:1945 [facility] Address [address] [place] [address] Care Team Providers Name Role Phone FADUMO HEBERT Unavailable Unavailable Problems This patient has no known problems. Allergies, Adverse Reactions, Alerts This patient has no known allergies or adverse reactions. Medications This patient has no known medications. Results Test Description Test Time Test Comments Text Results Atomic Results Result Comments TISSUE EXAM 2019-09-21 17:42:00 Surgical Pathology Report Case: [id number] Authorizing Provider: Joshua Warner, Collected: 09/20/2019 1151 Ordering Location: [address] Received: 09/20/2019 1444 Service Pathologist: Mesha Latif MD Specimen: Biopsy, Gastric, random gastric bx R/O H pyloric A. STOMACH, RANDOM BIOPSY- CHRONIC INACTIVE GASTRITIS, MILD- NO INTESTINAL METAPLASIA, DYSPLASIA OR INVASIVE CARCINOMA IDENTIIFIED- NO HELICOBACTER PYLORI LIKE ORGANISMS IDENTIFIED ON WARTHIN STARRY STAIN Signing Pathologist Direct Phone Line: [phone] signed by Mesha Latif MD on 09/21/2019 at 5:42 [id number] diagnosis: Upper gastrointestinal bleedingReceived in formalin labeled with the patient's name, accession number and "random gastric biopsy" are three pineda-pink tissue fragments that measure up to 0.3 cm in greatest dimension which are filtered and submitted in toto in A1. PA/pl PERFORMED.The interpretation of this case included the use of immunohistochemistry or special stains.Control Slides Examined: In-house known positive controls were evaluated along with the test tissue. These control slides run alongside of the patients sample show appropriate staining. Internal positive and negative controls when available are evaluated Immunohistochemistry technical testing was performed at [facility], Pathology Laboratory where it was developed and its performance characteristics were determined. It has not been cleared or approved by the U.S. Food and Drug Administration. The FDA has determined that such clearance or approval is not necessary. The test is used for clinical purposes. It should not be regarded as investigational or for research. This laboratory is certified under the Clinical Laboratory Improvement Amendments of 1988 (CLIA-88) as qualified to perform high complexity clinical laboratory testing.[facility], Department of Pathology, [address] [place] [id number], [facility], [address] [place] [id number], [facility], [facility], [address] [place] [id number], HEMOGLOBIN AND HEMATOCRIT 2019-09-20 15:26:00 Test Item Value Reference Range Comments HEMOGLOBIN (BEAKER) (test zwru=686) 10.3 GM/DL 11.2-15.7 HEMATOCRIT (BEAKER) (test qqeb=290) 29.9 % 34.1-44.9 BASIC METABOLIC [id number] 01:43:00 Test Item Value Reference Range Comments SODIUM (BEAKER) (test 135 meq/L 136-145 xpqt=172) POTASSIUM (BEAKER) (test 3.6 meq/L 3.5-5.1 geaa=197) CHLORIDE (BEAKER) (test 104 meq/L 98-107 pjdh=578) CO2 (BEAKER) (test 24 meq/L 22-29 wone=715) BLOOD UREA NITROGEN 39 mg/dL 7-21 (BEAKER) (test rwui=930) CREATININE (BEAKER) (test 0.64 mg/dL 0.57-1.25 eilz=486) GLUCOSE RANDOM (BEAKER) 130 mg/dL 70-105 (test zqxf=992) CALCIUM (BEAKER) (test 8.4 mg/dL 8.4-10.2 tdlc=794) EGFR (BEAKER) (test 91 mL/min/1.73 sq m ESTIMATED GFR IS NOT brjn=1636) ACCURATE CREATININE CLEARANCE IN PREDICTING GLOMERULAR FILTRATION RATE. ESTIMATED GFR IS NOT APPLICABLE FOR DIALYSIS PATIENTS. HEMOGLOBIN AND [id number] 23:12:00 Test Item Value Reference Range Comments HEMOGLOBIN (BEAKER) (test pcui=284) 6.6 GM/DL 11.2-15.7 HEMATOCRIT (BEAKER) (test twit=226) 19.6 % 34.1-44.9 BASIC METABOLIC [id number] 16:26:00 Test Item Value Reference Range Comments SODIUM (BEAKER) (test 133 meq/L 136-145 qooe=095) POTASSIUM (BEAKER) (test 3.6 meq/L 3.5-5.1 xqac=793) CHLORIDE (BEAKER) (test 98 meq/L 98-107 llgy=689) CO2 (BEAKER) (test 23 meq/L 22-29 qakb=759) BLOOD UREA NITROGEN 63 mg/dL 7-21 (BEAKER) (test fvmb=225) CREATININE (BEAKER) (test 0.83 mg/dL 0.57-1.25 wcjr=341) GLUCOSE RANDOM (BEAKER) 109 mg/dL 70-105 (test nblf=624) CALCIUM (BEAKER) (test 9.2 mg/dL 8.4-10.2 vczi=056) EGFR (BEAKER) (test 67 mL/min/1.73 sq m ESTIMATED GFR IS NOT inmm=0808) ACCURATE CREATININE CLEARANCE IN PREDICTING GLOMERULAR FILTRATION RATE. ESTIMATED GFR IS NOT APPLICABLE FOR DIALYSIS PATIENTS. HEMOGLOBIN AND [id number] 16:13:00 Test Item Value Reference Range Comments HEMOGLOBIN (BEAKER) (test cmxu=134) 7.5 GM/DL 11.2-15.7 HEMATOCRIT (BEAKER) (test nhlc=117) 21.9 % 34.1-44.9
== END 2019-09-23 14:00 | disposition home or self-care (01) ==
LOC: ER 18:14 → ERHOLD 22:02 → 4TH 23:13
PROVIDERS: ADMIT Hospitalist; ATTEND Family Medicine
PROC: 0DB68ZZ Excision of Stomach, Via Natural or Artificial Opening Endoscopic (ICD-10-PCS; principal; 2019-09-22 15:30)
DX: K29.40 Chronic atrophic gastritis without bleeding (principal); K44.9 Diaphragmatic hernia without obstruction or gangrene; K29.80 Duodenitis without bleeding; K25.9 Gastric ulcer, unspecified as acute or chronic, without hemorrhage or perforation; K26.9 Duodenal ulcer, unspecified as acute or chronic, without hemorrhage or perforation; K31.5 Obstruction of duodenum; E87.1 Hypo-osmolality and hyponatremia; D64.9 Anemia, unspecified; R53.1 Weakness; E34.3 Short stature due to endocrine disorder; M19.90 Unspecified osteoarthritis, unspecified site; G89.4 Chronic pain syndrome; F41.8 Other specified anxiety disorders; E78.5 Hyperlipidemia, unspecified; I10 Essential (primary) hypertension; G40.909 Epilepsy, unspecified, not intractable, without status epilepticus; D47.3 Essential (hemorrhagic) thrombocythemia; K21.9 Gastro-esophageal reflux disease without esophagitis; M06.9 Rheumatoid arthritis, unspecified; R32 Unspecified urinary incontinence
CPT/HCPCS: 96365; 96367; 96361; 93005; 87040 ×2; 87088; 85025 ×3; 80048 ×2; 36415 ×2; 83735 ×3; 88312; 84100 ×2; 85610 ×2; 80076; 88305; 85730; 84484; 83690; 80053; 84145; 83880; 71250; 74176; 71045; 97112; 97161; 96375; 99285; 43239; J2704; C9113 ×4; J1650 ×2; J3475 ×2; J0696; G0378 ×4; J7040; J7030 ×3; J2405; 81003; 81015; 82941; 87086